=== PATIENT | male | born 1975 ===

== ENCOUNTER 2017-06-29 14:50 | Inpatient (IN) | payer OTHER ==
[2017-06-29] MEDS ORDERED: Vancomycin 1 GM 1 GM/250 ML BAG IV STA (16:04)
[2017-06-29] MEDS ORDERED: Cefepime 1 GM in Sodium Chloride 0.9% 50 ML IVPB STA (16:05)
--- NOTE | 2017-06-29 16:32 | RAD ---
PROCEDURE: Left Foot Radiographs. HISTORY: LEFT FOOT SWELLING, R/O FOREIGN BODY COMPARISON: None available. FINDINGS: BONES: No acute displaced fracture. JOINTS: No dislocation. SOFT TISSUES: Soft tissue swelling. Vascular calcifications. No evidence of radiopaque foreign body. OTHER FINDINGS: None. IMPRESSION: Soft tissue swelling. No evidence radiopaque foreign body.
[2017-06-29 16:51] LABS: BASO # 0.1 K/uL (0.0-0.2); BASO % 0.6 % (0.0-2.0); EOS # 0.4 K/uL (0.0-0.7); HEMOGLOBIN 12.8 g/dL (12.0-18.0); LYMPH # 1.9 K/uL (1.0-4.3); LYMPH % 20.5 % (20.0-40.0); MEAN CELL VOLUME 87.5 fL (80.0-94.0); MEAN CORPUSCULAR HEMOGLOBIN 30.2 pg (27.0-31.0); MEAN CORPUSCULAR HGB CONC 34.5 g/dL (33.0-37.0); MEAN PLATELET VOLUME 8.5 fL (7.2-11.7); MONO # 0.6 K/uL (0.0-0.8); MONO % 6.3 % (0.0-10.0); NEUT # 6.3 K/uL (1.8-7.0); NEUT % 68.6 % (50.0-75.0); RBC 4.24 Mil/uL (4.40-5.90); RED CELL DISTRIBUTION WIDTH 12.2 % (11.5-14.5); WHITE BLOOD COUNT 9.2 K/uL (4.8-10.8)
[2017-06-29] MEDS ORDERED: Cefepime IV 1 gm in Dextrose 1 GM/50 ML BAG IVPB ONE (17:00)
[2017-06-29] MEDS ORDERED: Vancomycin 1 gm/NS 200 ml 1 GM/200 ML BAG IVPB ONE (17:00)
[2017-06-29 17:02] LABS: ALBUMIN 4.2 g/dL (3.5-5.0); ALT/SGPT 23 U/L (21-72); AST/SGOT 18 U/L (17-59); BLOOD UREA NITROGEN 22 mg/dL (9-20); CALCIUM 9.8 mg/dl (8.6-10.4); GFR AFRICAN-AMERICAN > 60; GFR NON-AFRICAN AMERICAN > 60
[2017-06-29] MEDS ORDERED: Tetanus/Diphtheria Toxoids 0.5 ml Syringe IM ONE ×2 (17:33→17:39)
--- NOTE | 2017-06-29 17:36 | C.PDOC ---
History Of Present Illness 41 year old male presents to ED for evaluation of pain and swelling to plantar aspect of left foot for the past 1 week after stepping on a nail at work. Notes that the nail went through the sole of his shoe. He was seen by Dr. Burgos today in the office, and instructed to come to ED; found to have elevated blood sugar level/new onset diabetes. Pt reports he is not up to date with tetanus vaccination. Otherwise, he denies fever/chills, chest pain, shortness of breath, other injuries. Time Seen by Provider: 06/29/17 15:30 Chief Complaint (Nursing): Abnormal Skin Integrity History Per: Patient History/Exam Limitations: no limitations Onset/Duration Of Symptoms: Days (1 week) Current Symptoms Are (Timing): Still Present Location Of Injury: Left: Foot Quality Of Symptoms: Painful Severity: Moderate Additional History Per: Patient Past Medical History Reviewed: Historical Data, Nursing Documentation, Vital Signs Vital Signs: Last Vital Signs Temp 98.0 F 07/05/17 08:15 Pulse 65 07/05/17 08:15 Resp 20 07/05/17 08:15 BP 112/75 07/05/17 08:15 Pulse Ox 95 07/05/17 08:15 - Medical History Other PMH: new onset diabetes Family History: States: No Known Family Hx - Social History Hx Alcohol Use: Yes Hx Substance Use: No - Immunization History Hx Tetanus Toxoid Vaccination: No Hx Influenza Vaccination: No Hx Pneumococcal Vaccination: No Review Of Systems Except As Marked, All Systems Reviewed And Found Negative. Constitutional: Negative for: Fever, Chills Cardiovascular: Negative for: Chest Pain Respiratory: Negative for: Cough, Shortness of Breath Musculoskeletal: Positive for: Foot Pain (left). Negative for: Leg Pain Neurological: Negative for: Weakness, Numbness Physical Exam - Physical Exam Appears: Well, Non-toxic, No Acute Distress Skin: Warm, Dry Head: Normacephalic Eye(s): bilateral: Normal Inspection Oral Mucosa: Moist Cardiovascular: Rhythm Regular Respiratory: Normal Breath Sounds, No Rales, No Rhonchi, No Wheezing Gastrointestinal/Abdominal: Normal Exam, Bowel Sounds, Soft, No Tenderness Extremity: Normal ROM (FROM of left foot), Tenderness (tenderness to plantar aspect of left foot ), No Calf Tenderness, Capillary Refill (< 2 sec all digits ), No Deformity, Other (0.5cm puncture wound at base of left third distal metatarsal joint, (+) surrounding erythema and warm to touch) Pulses: Left Dorsalis Pedis: Normal, Right Dorsalis Pedis: Normal Neurological/Psych: Oriented x3, Normal Sensation ED Course And Treatment - Laboratory Results Result Diagrams: 07/03/17 07:02 07/03/17 07:02 O2 Sat by Pulse Oximetry: 98 Pulse Ox Interpretation: Normal - Other Rad LEFT FOOT XRAY X-Ray: Viewed By Me, Read By Radiologist Interpretation: Accession No. : [id number]. Patient Name / ID : KIYA MCMULLEN / [id number]. Exam Date : 06/29/2017 16:11:35 ( Approved ). Study Comment : Sex / Age : M / 41Y. Creator : Medina Domínugez MD. Dictator : Medina Domínguez MD. Pet Food Deboner : Russian Language Professor : Medina Domínguez MD. Approver2 : Report Date : 06/29/2017 16:30:31. My Comment : . PROCEDURE: Left Foot Radiographs. HISTORY: LEFT FOOT SWELLING, R/O FOREIGN BODY. COMPARISON: None available. FINDINGS: BONES: No acute displaced fracture. JOINTS: No dislocation. SOFT TISSUES: Soft tissue swelling. Vascular calcifications. No evidence of radiopaque foreign body. OTHER FINDINGS: None. IMPRESSION: Soft tissue swelling. No evidence radiopaque foreign body. Progress Note: Blood work, and Xray of left foot ordered and reviewed. Patient given IV Cefepime and IV Vancomycin. Tetanus vaccination ordered. left foot x- ray ordered and reviewed. Pt was given Cefepime IVPB, and Vancomycin IV. Tetanus vaccination was administered. - Physician Consult Information Physician Contacted: Prince Burgos Outcome Of Conversation: Discussed patient with PMD, agrees with admission for foot cellulitis and new onset diabetes. Disposition - Disposition Disposition: HOSPITALIZED Disposition Time: 17:49 Condition: STABLE - Clinical Impression Clinical Impression: New onset type 2 diabetes mellitus, Cellulitis of left foot - Scribe Statement The provider has reviewed the documentation as recorded by the Terellibe Crissy Daly All medical record entries made by the Terellibe were at my direction and personally dictated by me. I have reviewed the chart and agree that the record accurately reflects my personal performance of the history, physical exam, medical decision making, and the department course for this patient. I have also personally directed, reviewed, and agree with the discharge instructions and disposition. Decision To Admit - Pt Status Changed To: Hospital Disposition Of: Inpatient - Admit Certification Admit to Inpatient:: After my assessment, the patient will require hospitalization for at least two midnights. This is because of the severity of symptoms shown, intensity of services needed, and/or the medical risk in this patient being treated as an outpatient. - InPatient: Physician Admission Certification: I certify that this patient requires 2 or more midnights of care for the following reason:: see notes - . Bed Request Type: Regular Admitting Physician: Prince Burgos Patient Diagnosis: New onset type 2 diabetes mellitus, Cellulitis of left foot
[2017-06-29] MEDS: Piperacillin/Tazobact 3.375 GM in Sodium Chloride 100 ML IVPB SCH (19:43)
[2017-06-29] MEDS ORDERED: Piperacillin/Tazobact 3.375 gm 0 ML IVPB ONE (19:44)
[2017-06-29] MEDS: Vancomycin 1 gm/NS 200 ml 1 GM/200 ML BAG IVPB SCH (19:44)
--- NOTE | 2017-06-29 20:24 | CP.PCM.HP ---
History of Present Illness - History of Present Illness History of Present Illness: Chief complaint: Left leg swelling History of present illness: 41-year-old male with no past medical history came to the office initially, with complaining of one-week of left foot swelling. Patient started the swelling after he had a injury while working, there was a nail pierced the skin in the left foot. He took the nail out. He was okay. The days later he started noticing pus and also blood with the pressure. Since then his condition in the left foot started worsening. He started having increasing pain. Increasing redness. Pain, and unable to walk, limping. He also started noticing chills, but no fever noted. He has no other systemic symptoms except chills. He did not have any medical problems in the past, did not seek any medical doctors. Past medical history none. Surgical history: None. Family history: Father with a heart disease, mother also had a history of diabetes and complications. Social history: Sometimes alcohol. Denies smoking. Drinks coffee. Currently working. Current medications none. Review of systems: Denies any headache. No chest pain or shortness of breath. Denies any nausea vomiting. No abdominal pain. Complaining of left leg pain, left foot pain, swelling, redness. Patient also had a significant abrasion in the left the bottom of the foot. On examination: HEENT PERRLA, neck supple No thyromegaly was noted and no cervical adenopathy noted Chest bilateral good air entry, no wheezing or rales noted CVS regular heart sound, no murmur Abdomen soft and no organomegaly Left leg patient has a 1 plus edema. Patient is also having swelling over the dorsum of the left foot, as well as plantar aspect of the foot. There is a redness, and some streaks of marking noted in the plantar aspect of the mid sole. Ablation noted, and the tip of the base of the fourth metatarsal skin lesions noted, wound present. 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 Patient's labs reviewed. Mild elevation of the WBC noted. ESR elevated. X-ray of the left foot nonspecific. Elevated glucose noted. Assessment and recommendation: 41-year-old male came to the office initially. Patient now came to the emergency room with worsening pain and swelling. Most likely patient has acute cellulitis involving the left foot, and associate it with the edema and systemic inflammatory reaction. Patient also had a nail injury. Patient received a tetanus injection. Currently on IV antibiotic, will continue the vancomycin and Zosyn. Glucose comfort. IV fluids. DVT. GI prophylaxis. Further orders in the chart. Will follow the patient Present on Admission - Present on Admission Any Indicators Present on Admission: No History of DVT/PE: No History of Uncontrolled Diabetes: No Urinary Catheter: No Decubitus Ulcer Present: No Past Patient History - Past Social History Smoking Status: Never Smoked - PSYCHIATRIC Hx Substance Use: No - SURGICAL HISTORY Hx Surgeries: No - ANESTHESIA Hx Anesthesia: No Meds Allergies/Adverse Reactions: Allergies Allergy/AdvReac Type Severity Reaction Status Date / Time No Known Allergies Allergy Unverified 06/29/17 15:26 Results - Vital Signs Recent Vital Signs: Last Vital Signs Temp 98.7 F 06/29/17 20:06 Pulse 73 06/29/17 20:06 Resp 18 06/29/17 20:06 BP 107/68 06/29/17 20:06 Pulse Ox 98 06/29/17 20:06 - Labs Result Diagrams: 06/29/17 16:42 06/29/17 16:42 Labs: Laboratory Results - last 24 hr 06/29/17 06/29/17 06/29/17 15:29 16:42 16:42 WBC 9.2 RBC 4.24 L Hgb 12.8 Hct 37.1 MCV 87.5 MCH 30.2 MCHC 34.5 RDW 12.2 Plt Count 361 MPV 8.5 Neut % (Auto) 68.6 Lymph % (Auto) 20.5 [place] % (Auto) 6.3 Eos % (Auto) 4.0 Baso % (Auto) 0.6 Neut # (Auto) 6.3 Lymph # (Auto) 1.9 [place] # (Auto) 0.6 Eos # (Auto) 0.4 Baso # (Auto) 0.1 ESR 106 H Sodium 134 Potassium 4.4 Chloride 93 L Carbon Dioxide 29 Anion Gap 17 BUN 22 H Creatinine 0.8 Est GFR ( Amer) > 60 Est GFR (Non-Af Amer) > 60 POC Glucose (mg/dL) 299 H Random Glucose 292 H Calcium 9.8 Total Bilirubin 0.5 AST 18 ALT 23 Alkaline Phosphatase 100 Total Protein 8.3 Albumin 4.2 Globulin 4.1 H Albumin/Globulin Ratio 1.0 Serum Ketones Negative
[2017-06-29] MEDS ORDERED: Sodium Chloride 0.9% 1,000 ML ONE (21:13)
[2017-06-29] MEDS: Sodium Chloride 0.9% 1,000 ML IV SCH (21:14)
[2017-06-29 21:58] LABS: BASO # 0.1 K/uL (0.0-0.2); BASO % 0.7 % (0.0-2.0); EOS # 0.4 K/uL (0.0-0.7); EOS % 5.1 % (0.0-4.0); HEMOGLOBIN 12.4 g/dL (12.0-18.0); LYMPH # 2.3 K/uL (1.0-4.3); LYMPH % 27.2 % (20.0-40.0); MEAN CELL VOLUME 87.2 fL (80.0-94.0); MEAN CORPUSCULAR HEMOGLOBIN 30.4 pg (27.0-31.0); MEAN CORPUSCULAR HGB CONC 34.9 g/dL (33.0-37.0); MEAN PLATELET VOLUME 8.9 fL (7.2-11.7); MONO # 0.6 K/uL (0.0-0.8); MONO % 6.6 % (0.0-10.0); NEUT # 5.2 K/uL (1.8-7.0); NEUT % 60.4 % (50.0-75.0); RBC 4.08 Mil/uL (4.40-5.90); RED CELL DISTRIBUTION WIDTH 12.1 % (11.5-14.5); WHITE BLOOD COUNT 8.5 K/uL (4.8-10.8)
[2017-06-29 22:08] LABS: ALBUMIN 4.1 g/dL (3.5-5.0); ALT/SGPT 24 U/L (21-72); AST/SGOT 19 U/L (17-59); BLOOD UREA NITROGEN 20 mg/dL (9-20); CALCIUM 9.7 mg/dl (8.6-10.4); GFR AFRICAN-AMERICAN > 60; GFR NON-AFRICAN AMERICAN > 60
[2017-06-29] MEDS: (Novolin R) Insulin Human Regular 100 units/ml vial SC SCH (22:28)
[2017-06-29] MEDS ORDERED: (Novolin R) Insulin Human Regular 100 units/ml vial ONE ×2 (22:28→22:32)
[2017-06-30] MEDS: Piperacillin/Tazobact 3.375 GM in Sodium Chloride 100 ML IVPB SCH ×4 (01:13→19:45)
[2017-06-30] MEDS: (Novolin R) Insulin Human Regular 100 units/ml vial SC SCH ×4 (08:23→21:40)
[2017-06-30] MEDS: Enoxaparin 40 mg Syringe SC SCH (10:53)
[2017-06-30] MEDS: Vancomycin 1 gm/NS 200 ml 1 GM/200 ML BAG IVPB SCH ×2 (10:53→21:42)
--- NOTE | 2017-06-30 11:35 | VASCLAB ---
PROCEDURE: Left Lower Extremity Venous Duplex Exam. HISTORY: Cellulitis PRIORS: None. TECHNIQUE: Left common femoral, femoral, popliteal and posterior tibial, peroneal and great saphenous veins were evaluated. Flow was assessed with color Doppler, compressibility, assessment of phasic flow and augmentation response. Report prepared by DANUTA Rodriguez, RVT FINDINGS: LEFT: 1. Common Femoral Vein: 1.1. Compressibility - Fully compressible: Thrombus - None : Flow - Phasic: Augmentation -Normal: Reflux - None. 2. Femoral Vein: 2.1. Compressibility - Fully compressible: Thrombus - None: Flow - Phasic: Augmentation -Normal: Reflux - None. 3. Popliteal Vein: 3.1. Compressibility - Fully compressible: Thrombus - None: Flow - Phasic: Augmentation -Normal: Reflux - None. 4. Posterior Tibial Vein: 4.1. Compressibility - Fully compressible: Thrombus - None: Flow - Phasic: Augmentation -Normal: Reflux - None. 5. Peroneal Vein: 5.1. Compressibility - Fully compressible: Thrombus - None: Flow - Phasic: Augmentation -Normal: Reflux - None. 6. Great Saphenous Vein: 6.1. Compressibility - Fully compressible: Thrombus - None: Flow - Phasic: Augmentation - Normal: Reflux - None. OTHER FINDINGS: IMPRESSION: No evidence of deep or superficial vein thrombosis of the left lower extremity with excellent venous flow. Normal valve function noted of the left side. Normal venous flow noted in the right common femoral vein.
[2017-06-30] MEDS: Sodium Chloride 0.9% 1,000 ML IV SCH (15:01)
--- NOTE | 2017-06-30 23:10 | CP.PCM.PN ---
Subjective - Date & Time of Evaluation Date of Evaluation: 06/30/17 Time of Evaluation: 23:09 - Subjective Subjective: Patient is feeling better. The leg pain is less. The redness is down. Denies any chest pain. No shortness of breath. Vital signs reviewed No neck vein distention noted Chest good air entry bilaterally, no wheezing or rales noted CVS regular heart sound, no murmur noted Abdomen soft, nontender. 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 Elevated hemoglobin A1c noted. Sugar is also elevated. MRI of the foot is currently pending. DVT study negative Assessment and recommendation: 41-year-old male admitted with new onset diabetes. Also having severe cellulitis of the left foot secondary to foreign body. Awaiting MRI. If there is any abscess, will get IND by turn machine operator. Infectious disease evaluation may be needed will follow the patient Objective - Vital Signs/Intake and Output Vital Signs (last 24 hours): Temp Pulse Resp BP Pulse Ox 98 F 70 20 125/76 97 06/30/17 15:50 06/30/17 15:50 06/30/17 15:50 06/30/17 15:50 06/30/17 15:50 Intake and Output: 06/30/17 07/01/17 18:59 06:59 Intake Total 1200 Balance 1200 - Medications Medications: Current Medications Enoxaparin Sodium (Lovenox) 40 mg SC DAILY [facility] Last Admin: 06/30/17 10:53 Dose: 40 mg Piperacillin Sod/Tazobactam (Sod 3.375 gm/ Sodium Chloride) 100 mls @ 200 mls/ hr IVPB Q6H [facility] Last Admin: 06/30/17 19:45 Dose: 200 mls/hr Sodium Chloride (Sodium Chloride 0.9%) 1,000 mls @ 100 mls/hr IV .Q10H [facility] Last Admin: 06/30/17 15:01 Dose: 100 mls/hr Vancomycin/Sodium Chloride (Vancomycin 1 Gm/Ns 200 Ml) 1 gm in 200 mls @ 166.6 mls/hr IVPB Q12H [facility] Stop: 07/05/17 22:31 Last Admin: 06/30/17 21:42 Dose: 166.6 mls/hr Insulin Human Regular (Novolin R) 0 unit SC ACHS [facility] PRN Reason: Protocol Last Admin: 06/30/17 21:40 Dose: Not Given Pantoprazole Sodium (Protonix Inj) 40 mg IVP DAILY [facility] Last Admin: 06/30/17 10:53 Dose: 40 mg Pneumococcal Polyvalent Vaccine (Pneumovax 23 Vaccine) 0.5 ml IM .ONCE ONE Stop: 07/02/17 14:01 - Labs Labs: 06/29/17 21:51 06/29/17 21:51
[2017-06-30] MEDS: (Lantus) Insulin Glargine, Recombinant SC SCH (23:35)
[2017-07-01] MEDS: Piperacillin/Tazobact 3.375 GM in Sodium Chloride 100 ML IVPB SCH ×4 (01:31→20:30)
[2017-07-01] MEDS: Sodium Chloride 0.9% 1,000 ML IV SCH ×4 (02:30→22:33)
[2017-07-01 07:33] LABS: ALBUMIN 3.5 g/dL (3.5-5.0); ALT/SGPT 22 U/L (21-72); AST/SGOT 18 U/L (17-59); BASO # 0.1 K/uL (0.0-0.2); BASO % 0.9 % (0.0-2.0); BLOOD UREA NITROGEN 13 mg/dL (9-20); CALCIUM 8.8 mg/dl (8.6-10.4); EOS # 0.4 K/uL (0.0-0.7); EOS % 5.1 % (0.0-4.0); GFR AFRICAN-AMERICAN > 60; GFR NON-AFRICAN AMERICAN > 60; HEMOGLOBIN 11.5 g/dL (12.0-18.0); LYMPH % 28.9 % (20.0-40.0); MEAN CELL VOLUME 86.7 fL (80.0-94.0); MEAN CORPUSCULAR HEMOGLOBIN 30.2 pg (27.0-31.0); MEAN CORPUSCULAR HGB CONC 34.8 g/dL (33.0-37.0); MEAN PLATELET VOLUME 8.3 fL (7.2-11.7); MONO # 0.6 K/uL (0.0-0.8); NEUT % 57.1 % (50.0-75.0); RBC 3.82 Mil/uL (4.40-5.90); RED CELL DISTRIBUTION WIDTH 11.9 % (11.5-14.5); WHITE BLOOD COUNT 7.1 K/uL (4.8-10.8)
--- NOTE | 2017-07-01 08:30 | CP.PCM.PN ---
Subjective - Date & Time of Evaluation Date of Evaluation: 07/01/17 Time of Evaluation: 08:29 - Subjective Subjective: Patient feeling okay. The blood sugar is slightly better. Denies any chest pain. Receiving IV antibiotics. Will discontinue the IV fluid today. Pending MRI report. Infectious disease, podiatry evaluation as needed after the MRI. Continue the IV antibiotic for now. Patient is a 41-year-old male with new onset diabetes. Admitted with the following body, and the left leg cellulitis. Cultures are so far negative, repeat blood analysis nonspecific Objective - Vital Signs/Intake and Output Vital Signs (last 24 hours): Temp Pulse Resp BP Pulse Ox 98 F 68 20 107/68 98 06/30/17 23:45 06/30/17 23:45 06/30/17 23:45 06/30/17 23:45 06/30/17 23:45 Intake and Output: 07/01/17 07/01/17 06:59 18:59 Intake Total 1000 Balance 1000 - Medications Medications: Current Medications Enoxaparin Sodium (Lovenox) 40 mg SC DAILY [facility] Last Admin: 06/30/17 10:53 Dose: 40 mg Glipizide (Glucotrol) 2.5 mg PO ACB [facility] Piperacillin Sod/Tazobactam (Sod 3.375 gm/ Sodium Chloride) 100 mls @ 200 mls/ hr IVPB Q6H [facility] Last Admin: 07/01/17 06:30 Dose: 200 mls/hr Sodium Chloride (Sodium Chloride 0.9%) 1,000 mls @ 100 mls/hr IV .Q10H [facility] Last Admin: 07/01/17 05:59 Dose: 100 mls/hr Vancomycin/Sodium Chloride (Vancomycin 1 Gm/Ns 200 Ml) 1 gm in 200 mls @ 166.6 mls/hr IVPB Q12H [facility] Stop: 07/05/17 22:31 Last Admin: 06/30/17 21:42 Dose: 166.6 mls/hr Insulin Glargine (Lantus) 10 unit SC HS [facility] Last Admin: 06/30/17 23:35 Dose: 10 units Insulin Human Regular (Novolin R) 0 unit SC ACHS [facility] PRN Reason: Protocol Last Admin: 06/30/17 21:40 Dose: Not Given Pantoprazole Sodium (Protonix Inj) 40 mg IVP DAILY [facility] Last Admin: 06/30/17 10:53 Dose: 40 mg Pneumococcal Polyvalent Vaccine (Pneumovax 23 Vaccine) 0.5 ml IM .ONCE ONE Stop: 07/02/17 14:01 - Labs Labs: 07/01/17 07:07 07/01/17 07:07
[2017-07-01] MEDS: GlipiZIDE 2.5 mg Tab PO SCH (09:05)
[2017-07-01] MEDS: Enoxaparin 40 mg Syringe SC SCH (09:05)
[2017-07-01] MEDS: (Novolin R) Insulin Human Regular 100 units/ml vial SC SCH ×4 (09:05→22:31)
[2017-07-01] MEDS: Vancomycin 1 gm/NS 200 ml 1 GM/200 ML BAG IVPB SCH ×2 (09:44→22:32)
--- NOTE | 2017-07-01 11:02 | MRI ---
MRI left foot History: Abscess. Cellulitis. Comparison: Plain x-ray dated 06/29/2017 Technique: Multi-echo multiplanar sequences were performed through the left foot without the use of intravenous contrast. Findings: Prominent plantar sided abscess with decreased T1 and increased STIR signal measuring 2.1 x 1.2 x 1.0 centimeters seen at the level of the 3rd and 4th metatarsal heads. Small fistula tract connecting to the plantar side of the foot noted. There is adjacent thickening and edema of the 4th flexor tendon sheath suggestive for a tenosynovitis. In addition, there is some adjacent reactive edema seen within the 3rd and 4th metatarsal heads as well as the base of the 4th proximal phalanx with increased STIR signal. No gross corresponding T1 signal abnormality at this level. These changes may represent a developing and or early acute osteomyelitis at these levels. Clinical correlation. Prominent reticulation and edema seen within the circumferential subcutaneous soft tissues suggestive for an underlying cellulitis. Prominent signal abnormality seen at the anterior and posterior aspect of the navicular bone at the articular surfaces demonstrating decreased T1 signal and increased STIR signal suggestive for prominent osteochondral change versus less likely osteonecrosis versus less likely the sequelae of posttraumatic, inflammatory, and or infectious changes. Clinical correlation. Signal changes seen at the medial sesamoid bone suggestive for some osteochondral change. Small amount of fluid noted within the extensor tendons of the 2nd through 5th digits. Edema noted within the muscle belly of the flexor digitorum longus muscle and partially surrounding the flexor hallucis longus tendon. Impression: 1. Prominent plantar sided abscess with decreased T1 and increased STIR signal measuring 2.1 x 1.2 x 1.0 centimeters seen at the level of the 3rd and 4th metatarsal heads. Small fistula tract connecting to the plantar side of the foot noted. There is adjacent thickening and edema of the 4th flexor tendon sheath suggestive for a tenosynovitis. In addition, there is some adjacent reactive edema seen within the 3rd and 4th metatarsal heads as well as the base of the 4th proximal phalanx with increased STIR signal. No gross corresponding T1 signal abnormality at this level. These changes may represent a developing and or early acute osteomyelitis at these levels. Clinical correlation. 2. Prominent reticulation and edema seen within the circumferential subcutaneous soft tissues suggestive for an underlying cellulitis. 3. Prominent signal abnormality seen at the anterior and posterior aspect of the navicular bone at the articular surfaces demonstrating decreased T1 signal and increased STIR signal suggestive for prominent osteochondral change versus less likely osteonecrosis versus less likely the sequelae of posttraumatic, inflammatory, and or infectious changes. Clinical correlation. 4. Signal changes seen at the medial sesamoid bone suggestive for some osteochondral change. 5. Small amount of fluid noted within the extensor tendons of the 2nd through 5th digits. 6. Edema noted within the muscle belly of the flexor digitorum longus muscle and partially surrounding the flexor hallucis longus tendon.
--- NOTE | 2017-07-01 15:39 | CP.PCM.CON ---
History of Present Illness - History of Present Illness History of Present Illness: Podiatry Consult Note- Dr. Holm 41 year old male seen at bedside concerning left foot redness and swelling. Pt states over one-week agoe at work he stepped on a nail, which pierced his shoe. He took the nail out. Over next 3 days he noticed redness and swelling to the foot, on the 3rd day he noted pus and also blood with walking. As pain increased this concerned him, prompting him to stillaguamish medical attention. Pt seen in ED where tetanus prophylaxis protocol was followed. Pt reports that at this time pain, redness, and swelling have decreased since admission. Pt admits to feeling of chills prior to admission, but denies recent f/cp/sob/n/v/dizzyness, tight jaw, or difficulty chewing, Past Patient History - Past Social History Smoking Status: Never Smoked - CARDIAC Hx Cardiac Disorders: No - PULMONARY Hx Respiratory Disorders: No - NEUROLOGICAL Hx Neurological Disorder: No - HEENT Hx HEENT Problems: No - RENAL Hx Chronic Kidney Disease: No - ENDOCRINE/METABOLIC Hx Endocrine Disorders: No - HEMATOLOGICAL/ONCOLOGICAL Hx Blood Disorders: No - INTEGUMENTARY Hx Dermatological Problems: No - MUSCULOSKELETAL/RHEUMATOLOGICAL Hx Musculoskeletal Disorders: No Hx Falls: No - GASTROINTESTINAL Hx Gastrointestinal Disorders: No - GENITOURINARY/GYNECOLOGICAL Hx Genitourinary Disorders: No - PSYCHIATRIC Hx Psychophysiologic Disorder: No Hx Substance Use: No - SURGICAL HISTORY Hx Surgeries: No - ANESTHESIA Hx Anesthesia: No Meds Allergies/Adverse Reactions: Allergies Allergy/AdvReac Type Severity Reaction Status Date / Time No Known Allergies Allergy Unverified 06/29/17 15:26 - Medications Medications: Current Medications Enoxaparin Sodium (Lovenox) 40 mg SC DAILY [facility] Last Admin: 07/01/17 09:05 Dose: 40 mg Glipizide (Glucotrol) 2.5 mg PO ACB [facility] Last Admin: 07/01/17 09:05 Dose: 2.5 mg Piperacillin Sod/Tazobactam (Sod 3.375 gm/ Sodium Chloride) 100 mls @ 200 mls/ hr IVPB Q6H [facility] Last Admin: 07/01/17 12:36 Dose: 200 mls/hr Sodium Chloride (Sodium Chloride 0.9%) 1,000 mls @ 100 mls/hr IV .Q10H [facility] Last Admin: 07/01/17 12:59 Dose: Not Given Vancomycin/Sodium Chloride (Vancomycin 1 Gm/Ns 200 Ml) 1 gm in 200 mls @ 166.6 mls/hr IVPB Q12H [facility] Stop: 07/05/17 22:31 Last Admin: 07/01/17 09:44 Dose: 166.6 mls/hr Insulin Glargine (Lantus) 10 unit SC HS [facility] Last Admin: 06/30/17 23:35 Dose: 10 units Insulin Human Regular (Novolin R) 0 unit SC ACHS [facility] PRN Reason: Protocol Last Admin: 07/01/17 12:36 Dose: 3 unit Pantoprazole Sodium (Protonix Inj) 40 mg IVP DAILY [facility] Last Admin: 07/01/17 09:05 Dose: 40 mg Pneumococcal Polyvalent Vaccine (Pneumovax 23 Vaccine) 0.5 ml IM .ONCE ONE Stop: 07/02/17 14:01 Physical Exam - Constitutional Appears: Well, Non-toxic, No Acute Distress - Extremities Exam Additional comments: Left lower extremity focused. VASC: DP and PT pulses fully palpable graded 3/4. CFT to all digits is prompt, < 3 seconds. Mild non-pitting edema noted to midfoot region. Temperature runs warm to warm proximal to distal. Pedal hair growth noted to level of digits. DERM: Non streaking erythema noted to plantar aspect of foot extending from hyperkeratoic lesion, noted as portal of entry into plantar chau, non streaking erythema, mild regional localized callor. No active drainage. Area of erythema mildly fluctuant. Nails are normotrophic. Skin is supple. NERUO: Protective sensation grossly intact extending to level of digits. Sharp dull sensation intact. MUSK: No gross deformities noted. No tenderness to palpation noted. Lower leg and pedal muscle strength graded 5/5 in all 4 major muscle groups. - Neurological Exam Neurological exam: Alert, Oriented x3 - Psychiatric Exam Psychiatric exam: Normal Affect, Normal Mood Results - Vital Signs Recent Vital Signs: Last Vital Signs Temp 97.7 F 07/01/17 09:30 Pulse 67 07/01/17 09:30 Resp 20 07/01/17 09:30 BP 109/67 07/01/17 09:30 Pulse Ox 96 07/01/17 09:30 - Labs Result Diagrams: 07/01/17 07:07 07/01/17 07:07 Labs: Laboratory Results - last 24 hr 06/30/17 06/30/17 07/01/17 17:11 21:38 07:02 WBC RBC Hgb Hct MCV MCH MCHC RDW Plt Count MPV Neut % (Auto) Lymph % (Auto) [place] % (Auto) Eos % (Auto) Baso % (Auto) Neut # (Auto) Lymph # (Auto) [place] # (Auto) Eos # (Auto) Baso # (Auto) Sodium Potassium Chloride Carbon Dioxide Anion Gap BUN Creatinine Est GFR ( Amer) Est GFR (Non-Af Amer) POC Glucose (mg/dL) 267 H 278 H 221 H Random Glucose Calcium Total Bilirubin AST ALT Alkaline Phosphatase Total Protein Albumin Globulin Albumin/Globulin Ratio 07/01/17 07/01/17 07/01/17 07:07 07:07 12:09 WBC 7.1 RBC 3.82 L Hgb 11.5 L Hct 33.1 L MCV 86.7 MCH 30.2 MCHC 34.8 RDW 11.9 Plt Count 308 MPV 8.3 Neut % (Auto) 57.1 Lymph % (Auto) 28.9 Stearns % (Auto) 8.0 Eos % (Auto) 5.1 H Baso % (Auto) 0.9 Neut # (Auto) 4.0 Lymph # (Auto) 2.0 Stearns # (Auto) 0.6 Eos # (Auto) 0.4 Baso # (Auto) 0.1 Sodium 132 Potassium 3.9 Chloride 96 L Carbon Dioxide 29 Anion Gap 10 BUN 13 Creatinine 0.8 Est GFR ( Amer) > 60 Est GFR (Non-Af Amer) > 60 POC Glucose (mg/dL) 232 H Random Glucose 221 H Calcium 8.8 Total Bilirubin 0.3 AST 18 ALT 22 Alkaline Phosphatase 76 Total Protein 6.9 Albumin 3.5 Globulin 3.5 Albumin/Globulin Ratio 1.0 Assessment & Plan - Assessment and Plan (Free Text) Assessment: 41 year old male with 1) left foot cellulitis secondary to foreign body 2) 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 Plan: Pt seen and evaluated. Discussed finding and plan with attending, Dr. Holm, who endorsed. Chart, labs, and vitals reviewed. Afebrile, absent leukocytosis. CSS=[id number], elevated X-rays reviewed- negative for soft tissue emphysema. MRI results: plantar abscess and 4th metatarsal head OM> Infectious disease consult pending, recommendations appreciated. Continue the IV antibiotic. Wound cx results- Coagulase negative staphylococcus species. Surgical intervention indicated. Pt to OR for left foot I&D of abscess and 4th metatarsal head resection. -Discussed etiology of injury and post foreign body complication with patient. Discussed risk, benefits, complications, and alternatives to surgical procedure. Discussed post-operative and rehabilitation course with patient. Pt verbalizes understanding and agrees to surgical intervention. - Pt placed NPO after breakfast tomorrow morning at 8am - Anticoagulant Lovenox 40mg SC held. Pt scheduled for procedure tomorrow Wednesday07/02/17 @ 3:30pm Podiatry will continue to follow patient while inhouse. - Date & Time Date: 07/01/17 Time: 14:00
--- NOTE | 2017-07-01 16:23 | CP.PCM.CON ---
History of Present Illness - History of Present Illness History of Present Illness: dictated Past Patient History - Past Social History Smoking Status: Never Smoked - CARDIAC Hx Cardiac Disorders: No - PULMONARY Hx Respiratory Disorders: No - NEUROLOGICAL Hx Neurological Disorder: No - HEENT Hx HEENT Problems: No - RENAL Hx Chronic Kidney Disease: No - ENDOCRINE/METABOLIC Hx Endocrine Disorders: No - HEMATOLOGICAL/ONCOLOGICAL Hx Blood Disorders: No - INTEGUMENTARY Hx Dermatological Problems: No - MUSCULOSKELETAL/RHEUMATOLOGICAL Hx Musculoskeletal Disorders: No Hx Falls: No - GASTROINTESTINAL Hx Gastrointestinal Disorders: No - GENITOURINARY/GYNECOLOGICAL Hx Genitourinary Disorders: No - PSYCHIATRIC Hx Psychophysiologic Disorder: No Hx Substance Use: No - SURGICAL HISTORY Hx Surgeries: No - ANESTHESIA Hx Anesthesia: No Meds Allergies/Adverse Reactions: Allergies Allergy/AdvReac Type Severity Reaction Status Date / Time No Known Allergies Allergy Unverified 06/29/17 15:26 - Medications Medications: Current Medications Enoxaparin Sodium (Lovenox) 40 mg SC DAILY [facility] Last Admin: 07/01/17 09:05 Dose: 40 mg Glipizide (Glucotrol) 2.5 mg PO ACB [facility] Last Admin: 07/01/17 09:05 Dose: 2.5 mg Piperacillin Sod/Tazobactam (Sod 3.375 gm/ Sodium Chloride) 100 mls @ 200 mls/ hr IVPB Q6H [facility] Last Admin: 07/01/17 12:36 Dose: 200 mls/hr Sodium Chloride (Sodium Chloride 0.9%) 1,000 mls @ 100 mls/hr IV .Q10H [facility] Last Admin: 07/01/17 12:59 Dose: Not Given Vancomycin/Sodium Chloride (Vancomycin 1 Gm/Ns 200 Ml) 1 gm in 200 mls @ 166.6 mls/hr IVPB Q12H [facility] Stop: 07/05/17 22:31 Last Admin: 07/01/17 09:44 Dose: 166.6 mls/hr Insulin Glargine (Lantus) 10 unit SC HS [facility] Last Admin: 06/30/17 23:35 Dose: 10 units Insulin Human Regular (Novolin R) 0 unit SC ACHS [facility] PRN Reason: Protocol Last Admin: 07/01/17 12:36 Dose: 3 unit Pantoprazole Sodium (Protonix Inj) 40 mg IVP DAILY [facility] Last Admin: 07/01/17 09:05 Dose: 40 mg Pneumococcal Polyvalent Vaccine (Pneumovax 23 Vaccine) 0.5 ml IM .ONCE ONE Stop: 07/02/17 14:01 Results - Vital Signs Recent Vital Signs: Last Vital Signs Temp 97.7 F 07/01/17 09:30 Pulse 67 07/01/17 09:30 Resp 20 07/01/17 09:30 BP 109/67 07/01/17 09:30 Pulse Ox 96 07/01/17 09:30 - Labs Result Diagrams: 07/01/17 07:07 07/01/17 07:07 Labs: Laboratory Results - last 24 hr 06/30/17 06/30/17 07/01/17 17:11 21:38 07:02 WBC RBC Hgb Hct MCV MCH MCHC RDW Plt Count MPV Neut % (Auto) Lymph % (Auto) [place] % (Auto) Eos % (Auto) Baso % (Auto) Neut # (Auto) Lymph # (Auto) Frederick # (Auto) Eos # (Auto) Baso # (Auto) Sodium Potassium Chloride Carbon Dioxide Anion Gap BUN Creatinine Est GFR ( Amer) Est GFR (Non-Af Amer) POC Glucose (mg/dL) 267 H 278 H 221 H Random Glucose Calcium Total Bilirubin AST ALT Alkaline Phosphatase Total Protein Albumin Globulin Albumin/Globulin Ratio 07/01/17 07/01/17 07/01/17 07:07 07:07 12:09 WBC 7.1 RBC 3.82 L Hgb 11.5 L Hct 33.1 L MCV 86.7 MCH 30.2 MCHC 34.8 RDW 11.9 Plt Count 308 MPV 8.3 Neut % (Auto) 57.1 Lymph % (Auto) 28.9 Frederick % (Auto) 8.0 Eos % (Auto) 5.1 H Baso % (Auto) 0.9 Neut # (Auto) 4.0 Lymph # (Auto) 2.0 Frederick # (Auto) 0.6 Eos # (Auto) 0.4 Baso # (Auto) 0.1 Sodium 132 Potassium 3.9 Chloride 96 L Carbon Dioxide 29 Anion Gap 10 BUN 13 Creatinine 0.8 Est GFR ( Amer) > 60 Est GFR (Non-Af Amer) > 60 POC Glucose (mg/dL) 232 H Random Glucose 221 H Calcium 8.8 Total Bilirubin 0.3 AST 18 ALT 22 Alkaline Phosphatase 76 Total Protein 6.9 Albumin 3.5 Globulin 3.5 Albumin/Globulin Ratio 1.0
[2017-07-01] MEDS: (Lantus) Insulin Glargine, Recombinant SC SCH (22:51)
[2017-07-02] MEDS: Piperacillin/Tazobact 3.375 GM in Sodium Chloride 100 ML IVPB SCH ×3 (01:04→13:31)
[2017-07-02] MEDS: GlipiZIDE 2.5 mg Tab PO SCH (07:24)
[2017-07-02 07:30] LABS: BASO % 0.7 % (0.0-2.0); EOS # 0.3 K/uL (0.0-0.7); EOS % 4.7 % (0.0-4.0); HEMOGLOBIN 11.5 g/dL (12.0-18.0); LYMPH # 2.1 K/uL (1.0-4.3); LYMPH % 27.9 % (20.0-40.0); MEAN CELL VOLUME 86.2 fL (80.0-94.0); MEAN CORPUSCULAR HEMOGLOBIN 30.5 pg (27.0-31.0); MEAN CORPUSCULAR HGB CONC 35.3 g/dL (33.0-37.0); MEAN PLATELET VOLUME 8.1 fL (7.2-11.7); MONO # 0.6 K/uL (0.0-0.8); MONO % 7.5 % (0.0-10.0); NEUT # 4.4 K/uL (1.8-7.0); NEUT % 59.2 % (50.0-75.0); RBC 3.79 Mil/uL (4.40-5.90); RED CELL DISTRIBUTION WIDTH 11.7 % (11.5-14.5); WHITE BLOOD COUNT 7.4 K/uL (4.8-10.8)
--- NOTE | 2017-07-02 07:58 | CON ---
DATE: HISTORY OF PRESENT ILLNESS: The patient is a 41-year-old male. 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 It pierced the skin in the left foot, and he took out the nail, he was okay, but he noticed pus and blood on pressure and is being worsening since that time. Hence, he is admitted here. I am asked to see him. He has increased redness. He was limping, unable to walk, and he denied any fevers, did have some chills. He is not diabetic, but I today only found out, he is diabetic. PAST MEDICAL HISTORY: Not known. SURGICAL HISTORY: Negative. FAMILY HISTORY: Father of heart disease and mother had history of diabetes and its complications. SOCIAL HISTORY: He sometimes drinks alcohol. No smoking and denies any drugs. MEDICATIONS: He takes no medications. REVIEW OF SYSTEMS: He denied any headaches. No ear, nose, or throat problems. No chest pain, no shortness of breath. No abdominal pain. No nausea, no vomiting. He did complain of left foot pain and unable to walk and has been limping because of the ulcer on the foot. PHYSICAL EXAMINATION: VITAL SIGNS: T-max is 97.8, pulse 67, blood pressure 135/86, respirations 20. HEENT: Head is atraumatic, normocephalic. Pupils are reacting to light. He only speaks Telugu. Tongue is unremarkable. NECK: Supple. JVP is flat. LUNGS: Clear. No crackles or rales present. HEART: S1 and S2 is regular. No murmurs appreciated. ABDOMEN: Soft, nontender. No guarding. No rigidity present. EXTREMITIES: Left foot has induration on the sole area, and there is a johnna with needle. I mean to say the nail may have gone in, but it was removed. LABS: Labs are noted. Labs show white count is 7.1, hemoglobin 11.5, hematocrit 33.1, platelet count is 308, BUN is 13, creatinine 0.8. LFTs are unremarkable, and the microwise wound culture came out coagulase negative Staph which is probably a skin contaminant. Blood cultures x2 are negative. The patient is supposed to have MRI and a Duplex and foot x-ray. Foot x-ray showed soft tissue swelling, vascular calcification. No evidence of radioopaque foreign body, and he also had Duplex scan of the lower extremity artery, and the MRI shows prominent plantar-sided abscess with increased ____ seen on the level of third and fourth metatarsal heads, small fistula tract connecting to the plantar side of the foot. There is adjacent thickening and edema of the fourth floor or tendon sheath suggesting tenosynovitis. There is some adjacent reactive edema seen within the third and the fourth metatarsal head as well as the base of the fourth proximal phalanx with increased STR signal. No gross corresponding abnormality at this level. There is prominent reticulation of the edema seen within the circumferential subcutaneous soft tissue suggesting of underlying cellulitis. He has an abscess status post nail. I hope he is up to date with his tetanus shot as that can be a problem, and he has an abscess that needs to be drained and we will follow, and leave him on vancomycin and Zosyn at this time. His labs, we will check ESR tomorrow and his sugars need to be monitored. Nohemy Taylor MD
[2017-07-02] MEDS: (Novolin R) Insulin Human Regular 100 units/ml vial SC SCH ×4 (08:39→21:31)
--- NOTE | 2017-07-02 08:41 | RAD ---
HISTORY: preop COMPARISON: None available. TECHNIQUE: Chest, one view. FINDINGS: Examination limited by habitus and hypoinflation. LUNGS: No focal consolidation. Please note that chest x-ray has limited sensitivity for the detection of pulmonary masses. PLEURA: No significant pleural effusion identified. No definite pneumothorax . CARDIOVASCULAR: The cardiomediastinal silhouette appears within normal limits of size. OSSEOUS STRUCTURES: No acute osseous abnormality identified. VISUALIZED UPPER ABDOMEN: Unremarkable. OTHER FINDINGS: None. IMPRESSION: Hypoinflation. No focal consolidation identified.
[2017-07-02] MEDS: Vancomycin 1 gm/NS 200 ml 1 GM/200 ML BAG IVPB SCH ×2 (10:44→21:33)
[2017-07-02 11:36] LABS: INR 1.1; PROTHROMBIN TIME 12.3 SECONDS (9.7-12.2)
--- NOTE | 2017-07-02 13:11 | CARD ---
APPROVED REPORT EKG Measurement Heart [id number] <Conclusion> Normal sinus rhythm Normal ECG
[2017-07-02] MEDS ORDERED: Pneumococcal 23-Valent Vaccine IM ONE (14:00)
[2017-07-02] MEDS ORDERED: Bupivacaine HCl 0.5% PF (10 ml) Inj ONE (16:11)
[2017-07-02] MEDS ORDERED: Lidocaine 2% Inj (20ml) ONE (16:11)
[2017-07-02] MEDS ORDERED: Lactated Ringer's 1,000 ML IV ONE (16:13)
[2017-07-02] MEDS ORDERED: Propofol 10 mg/ml Inj (20 ML) ONE (16:18)
[2017-07-02] MEDS: Piperacill/Tazo 3.375gm in Dex 3.375 GM/50 ML BAG IVPB SCH ×2 (16:30→21:32)
[2017-07-02] MEDS ORDERED: ePHEDrine 50 mg/ml Inj ONE (16:42)
[2017-07-02] MEDS ORDERED: Lidocaine Hydrochloride 5 ML INJ ONE (16:42)
[2017-07-02] MEDS ORDERED: Phenylephrine 10 mg/ml Inj ONE (16:42)
[2017-07-02] MEDS ORDERED: HYDROmorphone 0.5 mg/0.5 ml ISec IVP PRN (17:13)
--- NOTE | 2017-07-02 17:21 | PCM.SURG1 ---
Surgeon's Initial Post Op Note - Surgeon's Notes Surgeon: Dr. Huy Holm, DPM Nursing Teacher: Marimar Self PGY2 Type of Anesthesia: General LMA Anesthesia Administered By: Dr. Carey Pre-Operative Diagnosis: Left foot plantar abscess Operative Findings: see dictation Post-Operative Diagnosis: Left foot plantar space abscess. Operation Performed: Left foot incision and drainage Specimen/Specimens Removed: Left foot wound culture Estimated Blood Loss: EBL {In ML}: 15 Blood Products Given: N/A Drains Used: No Drains Post-Op Condition: Good Date of Surgery/Procedure: 07/02/17 Time of Surgery/Procedure: 17:21
[2017-07-02] MEDS ORDERED: Oxycodone/Acetaminophen 5/325 mg Tab PO PRN (17:24)
[2017-07-02] MEDS ORDERED: Labetalol 25mg/5ml Syringe IVP STA (18:21)
[2017-07-02] MEDS ORDERED: Labetalol 25mg/5ml Syringe ONE (18:27)
[2017-07-02] MEDS ORDERED: Piperacill/Tazo 3.375gm in Dex 3.375 GM/50 ML BAG IVPB SCH (19:30)
[2017-07-02] MEDS: Oxycodone/Acetaminophen 5/325 mg Tab PO PRN (20:30)
[2017-07-02] MEDS: (Lantus) Insulin Glargine, Recombinant SC SCH (21:34)
--- NOTE | 2017-07-02 21:59 | CP.PCM.PN ---
Subjective - Date & Time of Evaluation Date of Evaluation: 07/02/17 Time of Evaluation: 21:58 - Subjective Subjective: The patient today underwent incision and drainage. Complaining of pain in the left foot. Allergies well. He denies any chest pain. No shortness of breath. Patient blood sugar is much controlled than before. Vital signs reviewed No neck vein distention noted Chest good air entry bilaterally, no wheezing or rales noted CVS regular heart sound, no murmur noted Abdomen soft, nontender. Extremities no pedal edema MEDICAL CARE ADMINISTRATOR alert awake oriented -3, no functional neurological deficit Patient/family Elevated sugar still noted Assessment and recommendation: 41-year-old male admitted with new-onset diabetes, and associated cellulitis and abscess in the left foot. On antibiotic. Appreciate. Infectious disease as well as podiatric consultation. On antibiotic. Patient may need a PICC line. We'll continue the IV antibiotic, culture Objective - Vital Signs/Intake and Output Vital Signs (last 24 hours): Temp Pulse Resp BP Pulse Ox 98 F 74 14 148/99 H 95 07/02/17 19:00 07/02/17 19:00 07/02/17 19:00 07/02/17 19:00 07/02/17 18:45 - Medications Medications: Current Medications Acetaminophen (Tylenol 325mg Tab) 650 mg PO Q6 PRN PRN Reason: Pain, Mild (1-3) Enoxaparin Sodium (Lovenox) 40 mg SC DAILY [facility] Last Admin: 07/01/17 09:05 Dose: 40 mg Glipizide (Glucotrol) 5 mg PO ACB [facility] Vancomycin/Sodium Chloride (Vancomycin 1 Gm/Ns 200 Ml) 1 gm in 200 mls @ 166.6 mls/hr IVPB Q12H [facility] Stop: 07/05/17 22:31 Last Admin: 07/02/17 21:33 Dose: 166.6 mls/hr Piperacillin Sod/Tazobactam Sod (Zosyn 3.375 Gm Iv Premix) 3.375 gm in 50 mls @ 100 mls/hr IVPB Q6H [facility] Last Admin: 07/02/17 21:32 Dose: 100 mls/hr Insulin Glargine (Lantus) 10 unit SC HS [facility] Last Admin: 07/02/17 21:34 Dose: 10 units Insulin Human Regular (Novolin R) 0 unit SC ACHS [facility] PRN Reason: Protocol Last Admin: 07/02/17 21:31 Dose: Not Given Metformin HCl (Glucophage) 500 mg PO BID [facility] Oxycodone/Acetaminophen (Percocet 5/325 Mg Tab) 1 tab PO Q4H PRN PRN Reason: Pain, moderate (4-7) Stop: 07/05/17 17:25 Oxycodone/Acetaminophen (Percocet 5/325 Mg Tab) 2 tab PO Q6H PRN PRN Reason: Pain, severe (8-10) Stop: 07/05/17 17:25 Last Admin: 07/02/17 20:30 Dose: 2 tab Pantoprazole Sodium (Protonix Inj) 40 mg IVP DAILY [facility] Last Admin: 07/02/17 13:34 Dose: 40 mg - Labs Labs: 07/02/17 07:03 07/01/17 07:07 PT 12.3 SECONDS (9.7-12.2) H 07/02/17 11:09 INR 1.1 07/02/17 11:09
[2017-07-02] MEDS ORDERED: HYDROmorphone 0.5 mg/0.5 ml ISec IVP STA (22:02)
[2017-07-03 00:27] VITALS: RESP 20
--- NOTE | 2017-07-03 04:42 | OP ---
PROCEDURE DATE: 07/02/2017 PREOPERATIVE DIAGNOSES: 1. Left foot plantar space abscess. 2. Left foot fourth metatarsal osteomyelitis. POSTOPERATIVE DIAGNOSIS: Left foot plantar space abscess. PROCEDURE PERFORMED: Left foot incision and drainage of abscess. PRIMARY SURGEON: Huy Holm DPM ELECTRIC SPOT WELDER: Kentrell Self, PGY 2 ANESTHESIOLOGIST: Dr. Carey. ANESTHESIA TYPE: General LMA. SPECIMENS: Left foot wound culture. INDICATIONS: The patient is a 41-year-old male with the above stated diagnoses. The patient has exhausted all conservative treatment options and is now in need of surgical intervention. The patient signed the surgical consent after careful explanation of risks, benefits, complications, and potential alternatives to proposed surgical procedure. No guarantees were either given or implied. All patient's questions were answered to his satisfaction. PREPARATION: The patient's n.p.o. status was confirmed prior to bringing the patient to the operating room. The patient was brought into the operating room and placed on the operating room table in a supine position. Once general anesthesia was confirmed to have been achieved, the patient's left foot was then prepped and draped in usual sterile manner and the procedure was begun. PROCEDURE: Left foot incision and drainage of plantar abscess. DESCRIPTION OF PROCEDURE: Attention was then directed to the plantar aspect of the patient's left foot where an approximately 4 cm curvilinear incision was made extending inferior to the medial side of the fourth metatarsal and terminating in the plantar arch. This incision was extended down through the subcutaneous tissue layers with care being taken to identify, avoid, and retract all vital neurovascular structures. All bleeders were cauterized as needed. At this time, incision have been made through previous point of entry, which was noted to be 0.8 x 0.5 cm, was divided and excised and passed from the operating field. Using blunt dissection, via hemostat, sinus tract entry point was explored and sinus tract from the ulceration extending deep was exposed and approximately 2 mL of purulent drainage was produced and expressed. Wound culture was then taken at this time and passed from the operative field. At this time, full expression, and no additional purulence was expressed at this time. Soft tissue planes were explored to recover any additional sinus tracts and potential pockets of purulence or abscesses. None were discovered at this time. At this time, all nonviable soft tissue was resected and excised using #15 blade. Upon satisfaction, simple pulse lavage system was introduced and copious amounts of sterile saline was used to lavage area. Once lavage complete, soft tissue planes were inspected and all nonviable soft tissue was excised and passed from the operative field. With satisfactory debridement and drainage completed, surgical site was then re-approximated using 3-0 nylon in a simple suture type fashion. Central point left opened and 1/4 inch iodoform packing was introduced to allow adequate drainage of abscess site postoperatively. Left foot was then cleansed with sterile saline. The patient received a total of 10 mL of 0.5% Marcaine plain in a local block type fashion to the surgical area. Surgical site was then dressed with Xeroform, 4 x 4 gauze, Kerlix, Coban. POSTOPERATIVE CONDITION: The patient tolerated the anesthesia and procedure well and was escorted to the recovery room with vital signs stable and neurovascular status intact. The patient had no complaints. No immediate complications. The patient will be monitored while the patient remains in-house. Kentrell Self DPM Huy Holm DPM [facility]ELDA
[2017-07-03] MEDS: Piperacill/Tazo 3.375gm in Dex 3.375 GM/50 ML BAG IVPB SCH ×4 (04:50→21:50)
[2017-07-03] MEDS: Oxycodone/Acetaminophen 5/325 mg Tab PO PRN (04:59)
[2017-07-03 07:22] LABS: BASO % 0.4 % (0.0-2.0); EOS # 0.3 K/uL (0.0-0.7); HEMOGLOBIN 11.6 g/dL (12.0-18.0); LYMPH # 1.2 K/uL (1.0-4.3); LYMPH % 15.7 % (20.0-40.0); MEAN CELL VOLUME 85.7 fL (80.0-94.0); MEAN CORPUSCULAR HEMOGLOBIN 30.4 pg (27.0-31.0); MEAN CORPUSCULAR HGB CONC 35.5 g/dL (33.0-37.0); MEAN PLATELET VOLUME 8.2 fL (7.2-11.7); MONO # 0.6 K/uL (0.0-0.8); MONO % 7.7 % (0.0-10.0); NEUT # 5.7 K/uL (1.8-7.0); NEUT % 72.2 % (50.0-75.0); NRBC % 0.1 % (0.0-2.0); RBC 3.8 Mil/uL (4.40-5.90); WHITE BLOOD COUNT 7.9 K/uL (4.8-10.8)
[2017-07-03 07:39] LABS: ALB/GLOB RATIO 1.1 (1.0-2.1); ALBUMIN 3.6 g/dL (3.5-5.0); ALT/SGPT 24 U/L (21-72); AST/SGOT 21 U/L (17-59); BLOOD UREA NITROGEN 12 mg/dL (9-20); CALCIUM 9.3 mg/dl (8.6-10.4); GFR AFRICAN-AMERICAN > 60; GFR NON-AFRICAN AMERICAN > 60
[2017-07-03] MEDS: (Novolin R) Insulin Human Regular 100 units/ml vial SC SCH ×4 (07:46→21:58)
--- NOTE | 2017-07-03 09:59 | CP.PCM.PN ---
Subjective - Date & Time of Evaluation Date of Evaluation: 07/03/17 Time of Evaluation: 09:56 - Subjective Subjective: Post op day 1 I&D abscess left plantar foot .No Complaints . Op site looks good . Infection resolving well . No drainage or purulence noted . Incision line intact . Packing advanced and betadine sterile dressing applied. .Afebrile. Objective - Vital Signs/Intake and Output Vital Signs (last 24 hours): Temp Pulse Resp BP Pulse Ox 98 F 88 20 121/80 96 07/03/17 07:20 07/03/17 07:20 07/03/17 07:20 07/03/17 07:20 07/03/17 07:20 Intake and Output: 07/03/17 07/03/17 06:59 18:59 Intake Total 850 Output Total 800 Balance 50 - Medications Medications: Current Medications Acetaminophen (Tylenol 325mg Tab) 650 mg PO Q6 PRN PRN Reason: Pain, Mild (1-3) Enoxaparin Sodium (Lovenox) 40 mg SC DAILY [facility] Last Admin: 07/01/17 09:05 Dose: 40 mg Glipizide (Glucotrol) 5 mg PO ACB [facility] Last Admin: 07/03/17 07:48 Dose: 5 mg Vancomycin/Sodium Chloride (Vancomycin 1 Gm/Ns 200 Ml) 1 gm in 200 mls @ 166.6 mls/hr IVPB Q12H [facility] Stop: 07/05/17 22:31 Last Admin: 07/02/17 21:33 Dose: 166.6 mls/hr Piperacillin Sod/Tazobactam Sod (Zosyn 3.375 Gm Iv Premix) 3.375 gm in 50 mls @ 100 mls/hr IVPB Q6H [facility] Last Admin: 07/03/17 04:50 Dose: 100 mls/hr Insulin Glargine (Lantus) 10 unit SC HS [facility] Last Admin: 07/02/17 21:34 Dose: 10 units Insulin Human Regular (Novolin R) 0 unit SC ACHS [facility] PRN Reason: Protocol Last Admin: 07/03/17 07:46 Dose: 4 unit Metformin HCl (Glucophage) 500 mg PO BID [facility] Oxycodone/Acetaminophen (Percocet 5/325 Mg Tab) 1 tab PO Q4H PRN PRN Reason: Pain, moderate (4-7) Stop: 07/05/17 17:25 Saccharomyces Boulardii (Florastor) 250 mg PO TID [facility] - Labs Labs: 07/03/17 07:02 07/03/17 07:02 PT 12.3 SECONDS (9.7-12.2) H 07/02/17 11:09 INR 1.1 07/02/17 11:09
[2017-07-03] MEDS: Enoxaparin 40 mg Syringe SC SCH (10:51)
[2017-07-03] MEDS: Saccharomyces Boulardi 250 mg Cap PO SCH ×3 (10:51→18:47)
[2017-07-03] MEDS: Vancomycin 1 gm/NS 200 ml 1 GM/200 ML BAG IVPB SCH ×2 (10:52→22:34)
--- NOTE | 2017-07-03 12:48 | CP.PCM.PN ---
Subjective - Date & Time of Evaluation Date of Evaluation: 07/03/17 Time of Evaluation: 12:47 - Subjective Subjective: Patient with new-onset diabetes. Admitted with left foot cellulitis, abscess. Currently an antibiotic. Yesterday patient underwent incision and drainage. The culture is pending. Currently on antibiotic including vancomycin. No fever Pedal examination is unremarkable. Chest good air entry bilaterally regular heart sound nontender abdomen Labs reviewed Nonspecific. Coagulase-negative Staphylococcus aureus growth noted in the wound, but definite organism pending Assessment and recommendation: 41 male with diabetes admitted with cellulitis of the left foot and complicated with infection. Abscess. Status post incision and drainage. Awaiting for culture will follow the patient Patient will need possibly PICC line, and long-term IV antibiotic Objective - Vital Signs/Intake and Output Vital Signs (last 24 hours): Temp Pulse Resp BP Pulse Ox 98 F 88 20 121/80 96 07/03/17 07:20 07/03/17 07:20 07/03/17 07:20 07/03/17 07:20 07/03/17 07:20 Intake and Output: 07/03/17 07/03/17 06:59 18:59 Intake Total 850 Output Total 800 Balance 50 - Medications Medications: Current Medications Acetaminophen (Tylenol 325mg Tab) 650 mg PO Q6 PRN PRN Reason: Pain, Mild (1-3) Enoxaparin Sodium (Lovenox) 40 mg SC DAILY [facility] Last Admin: 07/03/17 10:51 Dose: 40 mg Glipizide (Glucotrol) 5 mg PO ACB [facility] Last Admin: 07/03/17 07:48 Dose: 5 mg Vancomycin/Sodium Chloride (Vancomycin 1 Gm/Ns 200 Ml) 1 gm in 200 mls @ 166.6 mls/hr IVPB Q12H [facility] Stop: 07/05/17 22:31 Last Admin: 07/03/17 10:52 Dose: 166.6 mls/hr Piperacillin Sod/Tazobactam Sod (Zosyn 3.375 Gm Iv Premix) 3.375 gm in 50 mls @ 100 mls/hr IVPB Q6H [facility] Last Admin: 07/03/17 10:51 Dose: 100 mls/hr Insulin Glargine (Lantus) 10 unit SC [facility] Last Admin: 07/02/17 21:34 Dose: 10 units Insulin Human Regular (Novolin R) 0 unit SC ACHS [facility] PRN Reason: Protocol Last Admin: 07/03/17 07:46 Dose: 4 unit Metformin HCl (Glucophage) 500 mg PO BID [facility] Last Admin: 07/03/17 10:51 Dose: 500 mg Oxycodone/Acetaminophen (Percocet 5/325 Mg Tab) 1 tab PO Q4H PRN PRN Reason: Pain, moderate (4-7) Stop: 07/05/17 17:25 Saccharomyces Boulardii (Florastor) 250 mg PO TID [facility] Last Admin: 07/03/17 10:51 Dose: 250 mg - Labs Labs: 07/03/17 07:02 07/03/17 07:02 PT 12.3 SECONDS (9.7-12.2) H 07/02/17 11:09 INR 1.1 07/02/17 11:09
[2017-07-03] MEDS: (Lantus) Insulin Glargine, Recombinant SC SCH (21:59)
[2017-07-04] MEDS: Piperacill/Tazo 3.375gm in Dex 3.375 GM/50 ML BAG IVPB SCH ×4 (04:08→21:13)
[2017-07-04] MEDS: (Novolin R) Insulin Human Regular 100 units/ml vial SC SCH ×4 (08:46→22:30)
[2017-07-04] MEDS: Vancomycin 1 gm/NS 200 ml 1 GM/200 ML BAG IVPB SCH ×2 (10:21→21:59)
[2017-07-04] MEDS: Saccharomyces Boulardi 250 mg Cap PO SCH ×3 (10:22→18:23)
[2017-07-04] MEDS: Enoxaparin 40 mg Syringe SC SCH (10:22)
--- NOTE | 2017-07-04 13:35 | CP.PCM.PN ---
Subjective - Date & Time of Evaluation Date of Evaluation: 07/04/17 Time of Evaluation: 10:40 - Subjective Subjective: Progress note - Dr. Holm 41 year old male patient is seen 2 days s/p I&D abscess left plantar foot. Patient is AAOx3 and is in NAD. Patient offers no complaints at this time. Patient denies of any acute overnight events. Reports that he had little fever overnight but it resolved. Denies of any N/V/C/SOB/CP/headache. denies of having any other pedal complains at this time. Objective - Vital Signs/Intake and Output Vital Signs (last 24 hours): Temp Pulse Resp BP Pulse Ox 98.2 F 80 20 119/76 98 07/04/17 08:00 07/04/17 08:00 07/04/17 08:00 07/04/17 08:00 07/04/17 08:00 Intake and Output: 07/04/17 07/04/17 06:59 18:59 Intake Total 850 Output Total 1750 Balance -900 - Medications Medications: Current Medications Acetaminophen (Tylenol 325mg Tab) 650 mg PO Q6 PRN PRN Reason: Pain, Mild (1-3) Enoxaparin Sodium (Lovenox) 40 mg SC DAILY [facility] Last Admin: 07/04/17 10:22 Dose: 40 mg Glipizide (Glucotrol) 5 mg PO ACB [facility] Last Admin: 07/04/17 08:46 Dose: 5 mg Vancomycin/Sodium Chloride (Vancomycin 1 Gm/Ns 200 Ml) 1 gm in 200 mls @ 166.6 mls/hr IVPB Q12H [facility] Stop: 07/05/17 22:31 Last Admin: 07/04/17 10:21 Dose: 166.6 mls/hr Piperacillin Sod/Tazobactam Sod (Zosyn 3.375 Gm Iv Premix) 3.375 gm in 50 mls @ 100 mls/hr IVPB Q6H [facility] Last Admin: 07/04/17 10:21 Dose: 100 mls/hr Insulin Glargine (Lantus) 10 unit SC HS [facility] Last Admin: 07/03/17 21:59 Dose: 10 units Insulin Human Regular (Novolin R) 0 unit SC ACHS [facility] PRN Reason: Protocol Last Admin: 07/04/17 12:29 Dose: 2 unit Metformin HCl (Glucophage) 500 mg PO BID [facility] Last Admin: 07/04/17 10:22 Dose: 500 mg Oxycodone/Acetaminophen (Percocet 5/325 Mg Tab) 1 tab PO Q4H PRN PRN Reason: Pain, moderate (4-7) Stop: 07/05/17 17:25 Last Admin: 07/03/17 12:59 Dose: 1 tab Saccharomyces Boulardii (Florastor) 250 mg PO TID [facility] Last Admin: 07/04/17 10:22 Dose: 250 mg - Labs Labs: 07/03/17 07:02 07/03/17 07:02 PT 12.3 SECONDS (9.7-12.2) H 07/02/17 11:09 INR 1.1 07/02/17 11:09 - Constitutional Appears: Well, Non-toxic, No Acute Distress - Extremities Exam Additional comments: Left lower extremity focused. VASC: DP and PT pulses fully palpable graded 3/4. CFT to all digits is prompt, < 3 seconds. no pitting or non-pitting edema noted. Temperature runs warm to cool from proximal to distal. Pedal hair growth noted to level of digits. DERM: Surgical sutures are well coapted with no dehiscence, from the packing site mild sanguineous discharge noted up on advancing, no purulent drainage, no malodor, no erythema, no clinical suspicion of active infection at this time NERUO: Protective sensation grossly intact extending to level of digits. Sharp dull sensation intact. MUSK: No gross deformities noted. mild tenderness to palpation noted at the surgical site. Lower leg and pedal muscle strength graded 5/5 in all 4 major muscle groups. - Neurological Exam Neurological Exam: Alert, Awake, Oriented x3 - Psychiatric Exam Psychiatric exam: Normal Affect, Normal Mood Assessment and Plan - Assessment and Plan (Free Text) Assessment: 41 year old male patient evaluated 2 days s/p I&D abscess left plantar foot. Plan: Pt seen and evaluated. Discussed finding and plan with attending, Dr. Holm, who endorsed. Chart, labs, and vitals reviewed. Afebrile, absent leukocytosis. Prior X-rays reviewed- negative for soft tissue emphysema. Prior MRI results: plantar abscess and 4th metatarsal head OM Infectious disease consult - recommendations appreciated. Continue the IV antibiotic. Prior Wound cx results- Coagulase negative staphylococcus species. Intra-op wound cultures - show no growth - prilim Podiatry will continue to follow patient while inhouse.
--- NOTE | 2017-07-04 19:11 | CP.PCM.PN ---
Subjective - Date & Time of Evaluation Date of Evaluation: 07/04/17 Time of Evaluation: 19:11 - Subjective Subjective: Patient is feeling better. Minimal pain noted. Tolerating. No chest pain or shortness of breath eating well Vital signs reviewed No neck vein distention noted Chest good air entry bilaterally, no wheezing or rales noted CVS regular heart sound, no murmur noted Abdomen soft, nontender. 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 The wound culture showing Staphylococcus aureus, antibiotic sensitivities pending Assessment and recommendation: 41-year-old male admitted with a cellulitis. Abscess in the left foot. New-onset diabetes. Awaiting culture, if the culture is positive depending upon the antibiotic sensitivity patient will be discharged with the antibiotic. Objective - Vital Signs/Intake and Output Vital Signs (last 24 hours): Temp Pulse Resp BP Pulse Ox 98.2 F 58 L 20 133/80 98 07/04/17 16:00 07/04/17 16:00 07/04/17 16:00 07/04/17 16:00 07/04/17 16:00 - Medications Medications: Current Medications Acetaminophen (Tylenol 325mg Tab) 650 mg PO Q6 PRN PRN Reason: Pain, Mild (1-3) Enoxaparin Sodium (Lovenox) 40 mg SC DAILY [facility] Last Admin: 07/04/17 10:22 Dose: 40 mg Glipizide (Glucotrol) 5 mg PO ACB [facility] Last Admin: 07/04/17 08:46 Dose: 5 mg Vancomycin/Sodium Chloride (Vancomycin 1 Gm/Ns 200 Ml) 1 gm in 200 mls @ 166.6 mls/hr IVPB Q12H [facility] Stop: 07/05/17 22:31 Last Admin: 07/04/17 10:21 Dose: 166.6 mls/hr Piperacillin Sod/Tazobactam Sod (Zosyn 3.375 Gm Iv Premix) 3.375 gm in 50 mls @ 100 mls/hr IVPB Q6H [facility] Last Admin: 07/04/17 16:40 Dose: 100 mls/hr Insulin Human Regular (Novolin R) 0 unit SC ACHS [facility] PRN Reason: Protocol Last Admin: 07/04/17 17:30 Dose: Not Given Metformin HCl (Glucophage) 850 mg PO BIDCC [facility] Saccharomyces Boulardii (Florastor) 250 mg PO TID [facility] Last Admin: 07/04/17 18:23 Dose: 250 mg - Labs Labs: 07/03/17 07:02 07/03/17 07:02 PT 12.3 SECONDS (9.7-12.2) H 07/02/17 11:09 INR 1.1 07/02/17 11:09
[2017-07-05] MEDS: Piperacill/Tazo 3.375gm in Dex 3.375 GM/50 ML BAG IVPB SCH ×3 (04:33→16:59)
--- NOTE | 2017-07-05 08:35 | CP.PCM.PN ---
Subjective - Date & Time of Evaluation Date of Evaluation: 07/05/17 Time of Evaluation: 08:34 - Subjective Subjective: Patient is currently feeling better. Denies any chest pain or shortness of breath Vital signs reviewed No neck vein distention noted Chest good air entry bilaterally, no wheezing or rales noted CVS regular heart sound, no murmur noted Abdomen soft, nontender. 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 New onset diabetes. Sugar controlled well. Awaiting antibiotic sensitivity, and the patient will be discharged home after that. Objective - Vital Signs/Intake and Output Vital Signs (last 24 hours): Temp Pulse Resp BP Pulse Ox 98.0 F 65 20 112/75 95 07/05/17 08:15 07/05/17 08:15 07/05/17 08:15 07/05/17 08:15 07/05/17 08:15 Intake and Output: 07/05/17 07/05/17 06:59 18:59 Intake Total 780 Output Total 600 Balance 180 - Medications Medications: Current Medications Acetaminophen (Tylenol 325mg Tab) 650 mg PO Q6 PRN PRN Reason: Pain, Mild (1-3) Last Admin: 07/04/17 21:33 Dose: 650 mg Enoxaparin Sodium (Lovenox) 40 mg SC DAILY [facility] Last Admin: 07/04/17 10:22 Dose: 40 mg Glipizide (Glucotrol) 5 mg PO ACB [facility] Last Admin: 07/04/17 08:46 Dose: 5 mg Vancomycin/Sodium Chloride (Vancomycin 1 Gm/Ns 200 Ml) 1 gm in 200 mls @ 166.6 mls/hr IVPB Q12H [facility] Stop: 07/05/17 22:31 Last Admin: 07/04/17 21:59 Dose: 166.6 mls/hr Piperacillin Sod/Tazobactam Sod (Zosyn 3.375 Gm Iv Premix) 3.375 gm in 50 mls @ 100 mls/hr IVPB Q6H [facility] Last Admin: 07/05/17 04:33 Dose: 100 mls/hr Insulin Human Regular (Novolin R) 0 unit SC ACHS [facility] PRN Reason: Protocol Last Admin: 07/04/17 22:30 Dose: Not Given Metformin HCl (Glucophage) 850 mg PO BIDCC [facility] Saccharomyces Boulardii (Florastor) 250 mg PO TID [facility] Last Admin: 07/04/17 18:23 Dose: 250 mg - Labs Labs: 07/03/17 07:02 07/03/17 07:02 PT 12.3 SECONDS (9.7-12.2) H 07/02/17 11:09 INR 1.1 07/02/17 11:09
[2017-07-05] MEDS: (Novolin R) Insulin Human Regular 100 units/ml vial SC SCH ×4 (08:38→22:47)
[2017-07-05] MEDS: Enoxaparin 40 mg Syringe SC SCH (10:27)
[2017-07-05] MEDS: Vancomycin 1 gm/NS 200 ml 1 GM/200 ML BAG IVPB SCH ×2 (10:27→22:48)
[2017-07-05] MEDS: Saccharomyces Boulardi 250 mg Cap PO SCH ×3 (10:29→17:57)
--- NOTE | 2017-07-05 13:59 | CP.PCM.PN ---
Subjective - Date & Time of Evaluation Date of Evaluation: 07/05/17 Time of Evaluation: 13:54 - Subjective Subjective: Podiatry Progress note for Dr. Holm 41 year old male is seen 3 days s/p I&D abscess left plantar foot with attending , Dr Holm. Patient is AAOx3 and is in NAD. Patient offers no complaints at this time. Patient denies of any acute overnight events. He currently denies any n/v/f/c/sob/cp. Objective - Vital Signs/Intake and Output Vital Signs (last 24 hours): Temp Pulse Resp BP Pulse Ox 98.0 F 65 20 112/75 95 07/05/17 08:15 07/05/17 08:15 07/05/17 08:15 07/05/17 08:15 07/05/17 08:15 Intake and Output: 07/05/17 07/05/17 06:59 18:59 Intake Total 780 Output Total 600 Balance 180 - Medications Medications: Current Medications Acetaminophen (Tylenol 325mg Tab) 650 mg PO Q6 PRN PRN Reason: Pain, Mild (1-3) Last Admin: 07/04/17 21:33 Dose: 650 mg Enoxaparin Sodium (Lovenox) 40 mg SC DAILY [facility]S AT [facility] Last Admin: 07/05/17 10:27 Dose: 40 mg Glipizide (Glucotrol) 5 mg PO ACB [facility]S AT [facility] Last Admin: 07/05/17 08:37 Dose: 5 mg Vancomycin/Sodium Chloride (Vancomycin 1 Gm/Ns 200 Ml) 1 gm in 200 mls @ 166.6 mls/hr IVPB Q12H [facility]S AT [facility] Stop: 07/05/17 22:31 Last Admin: 07/05/17 10:27 Dose: 166.6 mls/hr Piperacillin Sod/Tazobactam Sod (Zosyn 3.375 Gm Iv Premix) 3.375 gm in 50 mls @ 100 mls/hr IVPB Q6H [facility] 234 B[facility]S AT [facility] Last Admin: 07/05/17 10:27 Dose: 100 mls/hr Insulin Human Regular (Novolin R) 0 unit SC ACHS [facility] PRN Reason: Protocol Last Admin: 07/05/17 13:24 Dose: 3 unit Metformin HCl (Glucophage) 850 mg PO BIDCC [facility] 234 B[facility]S AT [facility] Last Admin: 07/05/17 08:38 Dose: 850 mg Saccharomyces Boulardii (Florastor) 250 mg PO TID [facility] Last Admin: 07/05/17 13:23 Dose: 250 mg - Labs Labs: 07/03/17 07:02 07/03/17 07:02 PT 12.3 SECONDS (9.7-12.2) H 07/02/17 11:09 INR 1.1 07/02/17 11:09 - Constitutional Appears: Well, Non-toxic, No Acute Distress - Extremities Exam Additional comments: Left lower extremity focused exam: VASC: DP and PT pulses palpable 2/4. CFT to all digits is prompt, < 3 seconds. no pitting or non-pitting edema noted. Temperature runs warm to cool from proximal to distal. Pedal hair growth noted to level of digits. DERM: Surgical sutures are well coapted with no dehiscence, no purulent drainage , no malodor, no erythema, no clinical suspicion of infection noted at this time NERUO: Protective sensation grossly intact extending to level of digits. Sharp dull sensation intact. ORTHO:mild tenderness to palpation noted at the surgical site - Neurological Exam Neurological Exam: Alert, Awake, Oriented x3 - Psychiatric Exam Psychiatric exam: Normal Affect, Normal Mood Assessment and Plan - Assessment and Plan (Free Text) Assessment: 41 year old male patient evaluated 3 days s/p I&D abscess left plantar foot Plan: Patient examied and evaluated with attending, Dr. Holm Chart, labs, and vitals reviewed. Afebrile Continue the IV antibiotic. Prior Wound cx results- Coagulase negative staphylococcus species. Intra-op wound cultures -Staph aureus Patient stable for d/c from podiatry, will follow up out patient with Dr. Holm Podiatry will continue to follow patient while inhouse.
[2017-07-05 16:42] VITALS: O2SAT 98
[2017-07-05] MEDS: Piperacillin/Tazobact 3.375 GM in Sodium Chloride 100 ML IVPB SCH (22:47)
[2017-07-06] MEDS: Piperacillin/Tazobact 3.375 GM in Sodium Chloride 100 ML IVPB SCH ×2 (03:54→09:03)
[2017-07-06] MEDS: (Novolin R) Insulin Human Regular 100 units/ml vial SC SCH ×2 (08:16→13:37)
[2017-07-06] MEDS: Saccharomyces Boulardi 250 mg Cap PO SCH ×2 (09:02→14:44)
[2017-07-06] MEDS: Enoxaparin 40 mg Syringe SC SCH (09:03)
--- NOTE | 2017-07-06 10:05 | CP.PCM.PN ---
Subjective - Date & Time of Evaluation Date of Evaluation: 07/06/17 Time of Evaluation: 10:05 - Subjective Subjective: Podiatry Progress note for Dr. Holm 41 year old male is seen 4 days s/p I&D abscess left plantar foot. Patient is AAOx3 and is in NAD. Patient currently denies any pain to his left foot. Dressing is clean, dry, intact. Patient denies of any acute overnight events. He currently denies any n/v/f/c/sob/cp. Objective - Vital Signs/Intake and Output Vital Signs (last 24 hours): Temp Pulse Resp BP Pulse Ox 98.0 F 65 20 109/71 98 07/06/17 08:27 07/06/17 08:27 07/06/17 08:27 07/06/17 08:27 07/06/17 08:27 - Medications Medications: Current Medications Acetaminophen (Tylenol 325mg Tab) 650 mg PO Q6 PRN PRN Reason: Pain, Mild (1-3) Last Admin: 07/04/17 21:33 Dose: 650 mg Enoxaparin Sodium (Lovenox) 40 mg SC DAILY [facility] Last Admin: 07/06/17 09:03 Dose: 40 mg Glipizide (Glucotrol) 5 mg PO ACB [facility] Last Admin: 07/06/17 08:15 Dose: 5 mg Piperacillin Sod/Tazobactam (Sod 3.375 gm/ Sodium Chloride) 100 mls @ 100 mls/ hr IVPB Q6H [facility] Last Admin: 07/06/17 09:03 Dose: 100 mls/hr Insulin Human Regular (Novolin R) 0 unit SC ACHS [facility] PRN Reason: Protocol Last Admin: 07/06/17 08:16 Dose: 2 unit Metformin HCl (Glucophage) 850 mg PO BIDCC [facility] Last Admin: 07/06/17 08:15 Dose: 850 mg Saccharomyces Boulardii (Florastor) 250 mg PO TID [facility] Last Admin: 07/06/17 09:02 Dose: 250 mg - Labs Labs: 07/03/17 07:02 07/03/17 07:02 PT 12.3 SECONDS (9.7-12.2) H 07/02/17 11:09 INR 1.1 07/02/17 11:09 - Constitutional Appears: Well, Non-toxic, No Acute Distress - Extremities Exam Additional comments: Left lower extremity focused exam: VASC: DP and PT pulses palpable 2/4. CFT to all digits < 3 seconds. no pitting or non-pitting edema noted. Skin temperature runs warm to cool from proximal to distal. Pedal hair growth noted to level of digits. DERM: Surgical sutures are well coapted with no dehiscence, no purulent drainage , no malodor, no erythema, no clinical suspicion of infection noted at this time NERUO: Protective sensation grossly intact extending to level of digits. Sharp dull sensation intact. ORTHO: Mild tenderness to palpation noted at the surgical site - Neurological Exam Neurological Exam: Alert, Awake, Oriented x3 - Psychiatric Exam Psychiatric exam: Normal Affect, Normal Mood Assessment and Plan - Assessment and Plan (Free Text) Assessment: 41 year old male patient evaluated 4 days s/p I&D abscess left plantar foot Plan: Patient examined and evaluated with attending, Dr. Holm Chart, labs, and vitals reviewed;Afebrile Continue IV abx per ID Prior Wound cx results- Coagulase negative staphylococcus species. Intra-op wound cultures -Staph aureus Patient stable for d/c from podiatry, will follow up out patient with Dr. Holm Podiatry will continue to follow patient while inhouse.
[2017-07-06] MEDS ORDERED: DAPTOmycin 500 MG in Sodium Chloride 0.9% 100 ML IV ONE (12:00)
--- NOTE | 2017-07-06 12:51 | PCM.SURG1 ---
Surgeon's Initial Post Op Note - Surgeon's Notes Surgeon: Kit Mckeon MD Shoe Handler: NONE Type of Anesthesia: Local Pre-Operative Diagnosis: Infection Operative Findings: US showed patent right basilic vein Post-Operative Diagnosis: Infection Operation Performed: right arm picc, 35 cm. Tip is in the SVC. Specimen/Specimens Removed: none Estimated Blood Loss: EBL {In ML}: 2 Blood Products Given: N/A Drains Used: No Drains Post-Op Condition: Fair Date of Surgery/Procedure: 07/06/17 Time of Surgery/Procedure: 12:45
--- NOTE | 2017-07-06 15:50 | CP.PCM.PN ---
Subjective - Date & Time of Evaluation Date of Evaluation: 07/06/17 Time of Evaluation: 15:50 - Subjective Subjective: - SEGUIMIENTO CON EL DR. OLSEN EN LA OFICINA EN EL PLAZO DE 7 ALEJO DESPUS DE LA DESCARGA --- LLAME AL OFICINA MAANA PARA HACER DE SANTIAGO VIJAY. - SEGUIMIENTO CON EL DR. JALLOH (PODIATRA) EN LA OFICINA EL LUNES, 13/07/17 --- LLAME A LA OFICINA MAANA PARA SOLICITAR UN HORARIO PARA DE SANTIAGO VIJAY. PT STABLE FOR D/C WITH PICC LINE FOR [address] ABX PER DR[address] CARRION. PT WILL COME TO THE [facility]PATIENT [facility] EVERYDAY EARLY IN THE MORNING BEFORE WORK FOR HIS ABX. RX AND F/U INFORMATION DISCUSSED AT LENGTH WITH THE PT. SEE BELOW FOR SPECIFIC D/C INSTRUCTIONS. - CONTINUAR MEDICAMENTOS EN EL HOGAR EN CASA HETAL HABITUAL. -YA AG SIDO DISPUESTO A COMENZAR IV ANTIBITICOS EN EL CENTRO DE INFUSIN PARA PACIENTES [facility] ([facility]), 07/07. PUEDE ESTAR AQU AMARAL PRONTO HETAL LAS 7:00 AM. - EN EL PRIMER DA, ASEGRESE DE REGISTRARSE EN LA PLANTA BAJA. TODOS LOS ALEJO DESPUS DE QUE PUEDAS NOTIFICAR LA SEGURIDAD Y ELLOS TE ENVIAR AL CENTRO DE INFUSIN. -TENGA CUIDADO CON LA LNEA PICC EN DE SANTIAGO BRAZO DERECHO; MANTNGALO SECO Y LIMPIO; CUBRA CON PLSTICO PARA DUCHA. - NECESITAR EL IV ANTIBITICO (CUBICIN) MEKA VEZ AL DA ION 6 SEMANAS TOTALES (COMIENZ EL 06/07/17 Y LA LTIMA DOSIS SE ADJUDICA EL 07/17/17). CUANDO ACABES - NECESITAR LIMPIAR LA HERIDA EN DE SANTIAGO PIE CADA DA HASTA QUE JOSI EL DR. JALLOH EN DE SANTIAGO OFICINA EL 13/07/17. COMIENCE ESTO EN [facility], 07/07/17; REPITA EL 09/07/17 Y EL 11/07/17. LIMPIARS TU PIE CON "BETADYNE", PERMITIR QUE SEA SECO, LUEGO CUBRIR CON MEKA ESTERIL "ALMOHADILLA 4X4 GAUZE". ENVUELVA ESTO CON MEKA "ENVOLTURA KERLIX GAUZE". -PASE Tenga cuidado con de santiago pie; CON LA DIABETES, [place] PUEDEN SANAR MUY LENTAMENTE. -LOS NUEVOS MEDICAMENTOS PRESCRITOS SON PARA DE SANTIAGO AZCAR. ASEGRESE DE TOMARLOS EXACTAMENTE HETAL SE PRESCRIBE POR DR. MATT ROLLINS. -Meka NUEVA MEDICACIN AG SIDO PRESCRITO PARA PROTEGER DE SANTIAGO ESTMAGO MIENTRAS EST EN LOS ANTIBITICOS (FLORASTOR) - CHRIS DOS VECES AL DA. -Para otras RDENES O PREOCUPACIONES, CONTACTO DR. CARSON ROLLINS. -FOLLOW UP WITH DR. OLSEN IN THE OFFICE WITHIN 7 DAYS OF DISCHARGE---CALL THE OFFICE TOMORROW TO MAKE YOUR APPOINTMENT. -FOLLOW UP WITH DR. JALLOH (DIGITAL PRESS OPERATOR) IN THE OFFICE ON 07/13/17---CALL THE OFFICE TOMORROW TO REQUEST A TIME FOR YOUR APPOINTMENT. -CONTINUE HOME MEDICATIONS AT HOME USUAL. -YOU HAVE BEEN ALREADY ARRANGED TO START IV ANTIBIOTICS AT THE [facility] TOMORROW (WEDNESDAY), . YOU CAN BE HERE EARLY 7:00 AM. -WHEN YOU COME ON YOUR FIRST DAY MAKE SURE YOU REGISTER ON THE GROUND FLOOR. EVERYDAY AFTER THAT YOU CAN NOTIFY SECURITY AND THEY WILL SEND YOU UP TO THE INFUSION CENTER. -BE CAREFUL WITH THE PICC LINE IN YOUR RIGHT ARM; KEEP IT DRY AND CLEAN; COVER WITH PLASTIC FOR SHOWERING. -YOU WILL NEED THE IV ANTIBIOTIC (CUBICIN) ONCE A DAY FOR 6 WEEKS TOTAL ( STARTED ON 07/06/17 AND LAST DOSE TO BE GIVEN ON 07/17/17). WHEN YOU ARE DONE -YOU WILL NEED TO CLEAN THE WOUND ON YOUR FOOT EVERY OTHER DAY UNTIL YOU SEE DR. JALLOH IN HIS OFFICE ON 07/13/17. START THIS ON 07/07/17; REPEAT ON 07/09/17 AND 07/11/17. YOU WILL CLEAN YOUR FOOT WITH "BETADYNE", ALLOW TO DRY, THEN COVER WITH A STERILE "4X4 GAUZE PAD". WRAP THIS WITH A "KERLIX GAUZE WRAP." -PLEASE BE CAREFUL WITH YOUR FOOT; WITH DIABETES, WOUNDS CAN HEAL VERY SLOWLY. -TWO NEW MEDICATIONS PRESCRIBED ARE FOR YOUR SUGAR. MAKE SURE YOU TAKE THEM EXACTLY PRESCRIBED PER DR. OLSEN'S REQUEST. -ONE NEW MEDICATION HAS BEEN PRESCRIBED TO YOU TO PROTECT YOUR STOMACH WHILE ON THE ANTIBIOTICS (FLORASTOR)--TAKE TWICE A DAY. -FOR FURTHER ORDERS OR CONCERNS, CONTACT DR. OLSEN'S OFFICE. Objective - Vital Signs/Intake and Output Vital Signs (last 24 hours): Temp Pulse Resp BP Pulse Ox 98.0 F 65 20 109/71 98 07/06/17 08:27 07/06/17 08:27 07/06/17 08:27 07/06/17 08:27 07/06/17 08:27 Intake and Output: 07/06/17 07/06/17 06:59 18:59 Intake Total 600 Balance 600 - Medications Medications: Current Medications Acetaminophen (Tylenol 325mg Tab) 650 mg PO Q6 PRN PRN Reason: Pain, Mild (1-3) Last Admin: 07/04/17 21:33 Dose: 650 mg Enoxaparin Sodium (Lovenox) 40 mg SC DAILY [facility] Last Admin: 07/06/17 09:03 Dose: 40 mg Glipizide (Glucotrol) 5 mg PO ACB [facility] Last Admin: 07/06/17 08:15 Dose: 5 mg Piperacillin Sod/Tazobactam (Sod 3.375 gm/ Sodium Chloride) 100 mls @ 100 mls/ hr IVPB Q6H [facility] Last Admin: 07/06/17 09:03 Dose: 100 mls/hr Insulin Human Regular (Novolin R) 0 unit SC ACHS [facility] PRN Reason: Protocol Last Admin: 07/06/17 13:37 Dose: 3 unit Metformin HCl (Glucophage) 850 mg PO BIDCC [facility] Last Admin: 07/06/17 08:15 Dose: 850 mg Saccharomyces Boulardii (Florastor) 250 mg PO TID [facility] Last Admin: 07/06/17 14:44 Dose: 250 mg - Labs Labs: 07/03/17 07:02 07/03/17 07:02 PT 12.3 SECONDS (9.7-12.2) H 07/02/17 11:09 INR 1.1 07/02/17 11:09
[2017-07-06 16:02] VITALS: BP 112/73; PULSE 75; TEMP 98.3
--- NOTE | 2017-07-06 21:46 | CP.PCM.DIS ---
Provider - Provider Date of Admission: 06/29/17 17:49 Attending physician: Prince Olsen MD Time Spent in preparation of Discharge (in minutes): 45 Hospital Course - Lab Results Lab Results: Micro Results 07/02/17 16:54 Abscess - Foot-Left Gram Stain - Final 07/02/17 16:54 Abscess - Foot-Left Wound Culture - Final Staphylococcus Aureus 06/29/17 16:15 Blood Blood Culture - Final NO GROWTH AFTER 5 DAYS 06/29/17 16:15 Blood Gram Stain - Final TEST NOT PERFORMED 06/29/17 15:45 Blood Blood Culture - Final NO GROWTH AFTER 5 DAYS 06/29/17 15:45 Blood Gram Stain - Final TEST NOT PERFORMED 06/29/17 20:47 Foot - Left Gram Stain - Final 06/29/17 20:47 Foot - Left Wound Culture - Final Coagulase Neg Staphylococcus Most Recent Lab Values WBC 7.9 K/uL (4.8-10.8) 07/03/17 07:02 RBC 3.80 Mil/uL (4.40-5.90) L 07/03/17 07:02 Hgb 11.6 g/dL (12.0-18.0) L 07/03/17 07:02 Hct 32.5 % (35.0-51.0) L 07/03/17 07:02 MCV 85.7 fL (80.0-94.0) 07/03/17 07:02 MCH 30.4 pg (27.0-31.0) 07/03/17 07:02 MCHC 35.5 g/dL (33.0-37.0) 07/03/17 07:02 RDW 12.0 % (11.5-14.5) 07/03/17 07:02 Plt Count 312 K/uL (130-400) 07/03/17 07:02 MPV 8.2 fL (7.2-11.7) 07/03/17 07:02 Neut % (Auto) 72.2 % (50.0-75.0) 07/03/17 07:02 Lymph % (Auto) 15.7 % (20.0-40.0) L 07/03/17 07:02 Brown % (Auto) 7.7 % (0.0-10.0) 07/03/17 07:02 Eos % (Auto) 4.0 % (0.0-4.0) 07/03/17 07:02 Baso % (Auto) 0.4 % (0.0-2.0) 07/03/17 07:02 Neut # (Auto) 5.7 K/uL (1.8-7.0) 07/03/17 07:02 Lymph # (Auto) 1.2 K/uL (1.0-4.3) 07/03/17 07:02 Brown # (Auto) 0.6 K/uL (0.0-0.8) 07/03/17 07:02 Eos # (Auto) 0.3 K/uL (0.0-0.7) 07/03/17 07:02 Baso # (Auto) 0.0 K/uL (0.0-0.2) 07/03/17 07:02 ESR 88 mm/hr (0-15) H 07/02/17 07:03 PT 12.3 SECONDS (9.7-12.2) H 07/02/17 11:09 INR 1.1 07/02/17 11:09 Sodium 133 mmol/L (132-148) 07/03/17 07:02 Potassium 3.8 mmol/L (3.6-5.2) 07/03/17 07:02 Chloride 94 mmol/L (98-107) L 07/03/17 07:02 Carbon Dioxide 27 mmol/L (22-30) 07/03/17 07:02 Anion Gap 16 (10-20) 07/03/17 07:02 BUN 12 mg/dL (9-20) 07/03/17 07:02 Creatinine 0.8 mg/dL (0.8-1.5) 07/03/17 07:02 Est GFR ( Amer) > 60 07/03/17 07:02 Est GFR (Non-Af Amer) > 60 07/03/17 07:02 POC Glucose (mg/dL) 147 mg/dL (65-110) H 07/06/17 16:47 Random Glucose 277 mg/dL (75-110) H 07/03/17 07:02 Hemoglobin A1c 9.7 % (4.2-6.5) H 06/29/17 21:51 Calcium 9.3 mg/dl (8.6-10.4) 07/03/17 07:02 Total Bilirubin 0.2 mg/dL (0.2-1.3) 07/03/17 07:02 AST 21 U/L (17-59) 07/03/17 07:02 ALT 24 U/L (21-72) 07/03/17 07:02 Alkaline Phosphatase 72 U/L (38-126) 07/03/17 07:02 Total Protein 7.0 g/dL (6.3-8.3) 07/03/17 07:02 Albumin 3.6 g/dL (3.5-5.0) 07/03/17 07:02 Globulin 3.4 gm/dL (2.2-3.9) 07/03/17 07:02 Albumin/Globulin Ratio 1.1 (1.0-2.1) 07/03/17 07:02 Vancomycin Trough 10.8 ug/mL (5.0-10.0) H 07/03/17 07:02 Serum Ketones Negative (NEGATIVE) 06/29/17 16:42 - Hospital Course Hospital Course: Chief complaint: Left leg swelling History of present illness: 41-year-old male with no past medical history came to the office initially, with complaining of one-week of left foot swelling. Patient started the swelling after he had a injury while working, there was a nail pierced the skin in the left foot. He took the nail out. He was okay. The days later he started noticing pus and also blood with the pressure. Since then his condition in the left foot started worsening. He started having increasing pain. Increasing redness. Pain, and unable to walk, limping. He also started noticing chills, but no fever noted. He has no other systemic symptoms except chills. He did not have any medical problems in the past, did not seek any medical doctors. Past medical history none. Surgical history: None. Family history: Father with a heart disease, mother also had a history of diabetes and complications. Social history: Sometimes alcohol. Denies smoking. Drinks coffee. Currently working. Current medications none. Review of systems: Denies any headache. No chest pain or shortness of breath. Denies any nausea vomiting. No abdominal pain. Complaining of left leg pain, left foot pain, swelling, redness. Patient also had a significant abrasion in the left the bottom of the foot. On examination: HEENT PERRLA, neck supple No thyromegaly was noted and no cervical adenopathy noted Chest bilateral good air entry, no wheezing or rales noted CVS regular heart sound, no murmur Abdomen soft and no organomegaly Left leg patient has a 1 plus edema. Patient is also having swelling over the dorsum of the left foot, as well as plantar aspect of the foot. There is a redness, and some streaks of marking noted in the plantar aspect of the mid sole. Ablation noted, and the tip of the base of the fourth metatarsal skin lesions noted, wound present. 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 Patient's labs reviewed. Mild elevation of the WBC noted. ESR elevated. X-ray of the left foot nonspecific. Elevated glucose noted. Assessment and recommendation: 41-year-old male came to the office initially. Patient now came to the emergency room with worsening pain and swelling. Most likely patient has acute cellulitis involving the left foot, and associate it with the edema and systemic inflammatory reaction. Patient also had a nail injury. Patient received a tetanus injection. Currently on IV antibiotic, will continue the vancomycin and Zosyn. Glucose comfort. IV fluids. DVT. GI prophylaxis. Further orders in the chart. Will follow the patient Course in the Hospital: Patient was hospitalized. He was initially started on intravenous vancomycin, and Zosyn. Initial cultures were negative. 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 Infectious disease consultation, podiatric consultation was called. Patient underwent incision and drainage of the left plantar aspect. The wound was showing evidence of methicillin sensitive Staphylococcus aureus. Patient was placed on IV antibiotic including vancomycin. Blood sugar was controlled with metformin and glipizide. Vision was educated about the diabetes. He was given information about the glucose monitoring. Diet contrast was given. PICC line was placed. Patient will be getting the intravenous antibiotic to increase the compliance, and improve the healing in at [facility]. Patient will be continuing his oral medication, he will follow-up in my office. Final diagnosis: New onset diabetes. Type II. Acute abscess involving the left plantar aspect. foreign body. Discharge Plan - Discharge Medications Prescriptions: DAPTOmycin [Cubicin] 500 mg IV ONCE 42 Days vial Saccharomyces Boulardi [Florastor] 250 mg PO BID #84 cap metFORMIN [glucOPHAGE] 850 mg PO BIDCC #60 tab GlipiZIDE [Glucotrol] 5 mg PO ACB #30 tab - Follow Up Plan Condition: STABLE Disposition: HOME/ ROUTINE Instructions: Carbohydrate Counting Diet, Probiotics, Hyperglycemia, Adult (DC) , Diabetes Type 2 (DC), Cellulitis (Skin Infection), Adult (DC), Daptomycin, Glipizide, Metformin, Foot Care for Diabetics, Wound Incision and Drainage (DC) Additional Instructions: - SEGUIMIENTO CON EL DR. OLSEN EN LA OFICINA EN EL PLAZO DE 7 ALEJO DESPUS DE LA DESCARGA --- LLAME AL OFICINA MAANA PARA HACER DE SANTIAGO VIJYA. - SEGUIMIENTO CON EL DR. HOLM (PODIATRA) EN LA OFICINA EL [facility], 13/07/17 --- LLAME A LA OFICINA MAANA PARA SOLICITAR UN HORARIO PARA DE SANTIAGO VIJAY. - CONTINUAR MEDICAMENTOS EN EL HOGAR EN CASA HETAL HABITUAL. -YA AG SIDO DISPUESTO A COMENZAR IV ANTIBITICOS EN EL CENTRO DE INFUSIN PARA PACIENTES [facility] ([facility]), 07/07. PUEDE ESTAR AQU AMARAL PRONTO HETAL LAS 7:00 AM. - EN EL PRIMER DA, ASEGRESE DE REGISTRARSE EN LA PLANTA BAJA. TODOS LOS ALEJO DESPUS DE QUE PUEDAS NOTIFICAR LA SEGURIDAD Y ELLOS TE ENVIAR AL CENTRO DE INFUSIN. -TENGA CUIDADO CON LA LNEA PICC EN DE SANTIAGO BRAZO DERECHO; MANTNGALO SECO Y LIMPIO; CUBRA CON PLSTICO PARA DUCHA. - NECESITAR EL IV ANTIBITICO (CUBICIN) MEKA VEZ AL DA ION 6 SEMANAS TOTALES (COMIENZ EL 06/07/17 Y LA LTIMA DOSIS SE ADJUDICA EL 07/17/17). CUANDO ACABES - NECESITAR LIMPIAR LA HERIDA EN DE SANTIAGO PIE CADA DA HASTA QUE JOSI EL DR. HOLM EN DE SANTIAGO OFICINA EL 13/07/17. COMIENCE ESTO EN [facility], 07/07/17; REPITA EL 09/07/17 Y EL 11/07/17. LIMPIARS TU PIE CON "BETADYNE", PERMITIR QUE SEA SECO, LUEGO CUBRIR CON MEKA ESTERIL "ALMOHADILLA 4X4 GAUZE". ENVUELVA ESTO CON MEKA "ENVOLTURA KERLIX GAUZE". -PASE Tenga cuidado con de santiago pie; CON LA DIABETES, L[place] PUEDEN SANAR MUY LENTAMENTE. -LOS NUEVOS MEDICAMENTOS PRESCRITOS SON PARA DE SANTIAGO AZCAR. ASEGRESE DE TOMARLOS EXACTAMENTE HETAL SE PRESCRIBE POR DR. MATT ROLLINS. -Meka NUEVA MEDICACIN AG SIDO PRESCRITO PARA PROTEGER DE SANTIAGO ESTMAGO MIENTRAS EST EN LOS ANTIBITICOS (FLORASTOR) - CHRIS DOS VECES AL DA. -Para otras RDENES O PREOCUPACIONES, CONTACTO DR. CARSON ROLLINS. -FOLLOW UP WITH DR. OLSEN IN THE OFFICE WITHIN 7 DAYS OF DISCHARGE---CALL THE OFFICE TOMORROW TO MAKE YOUR APPOINTMENT. -FOLLOW UP WITH DR. HOLM (HARDENING MACHINE OPERATOR HELPER) IN THE OFFICE ON 07/13/17---CALL THE OFFICE TOMORROW TO REQUEST A TIME FOR YOUR APPOINTMENT. -CONTINUE HOME MEDICATIONS AT HOME USUAL. -YOU HAVE BEEN ALREADY ARRANGED TO START IV ANTIBIOTICS AT THE [facility] TOMORROW (WEDNESDAY), . YOU CAN BE HERE EARLY 7:00 AM. -WHEN YOU COME ON YOUR FIRST DAY MAKE SURE YOU REGISTER ON THE GROUND FLOOR. EVERYDAY AFTER THAT YOU CAN NOTIFY SECURITY AND THEY WILL SEND YOU UP TO THE INFUSION CENTER. -BE CAREFUL WITH THE PICC LINE IN YOUR RIGHT ARM; KEEP IT DRY AND CLEAN; COVER WITH PLASTIC FOR SHOWERING. -YOU WILL NEED THE IV ANTIBIOTIC (CUBICIN) ONCE A DAY FOR 6 WEEKS TOTAL ( STARTED ON 07/06/17 AND LAST DOSE TO BE GIVEN ON 07/17/17). WHEN YOU ARE DONE -YOU WILL NEED TO CLEAN THE WOUND ON YOUR FOOT EVERY OTHER DAY UNTIL YOU SEE DR. HOLM IN HIS OFFICE ON 07/13/17. START THIS ON 07/07/17; REPEAT ON 07/09/17 AND 07/11/17. YOU WILL CLEAN YOUR FOOT WITH "BETADYNE", ALLOW TO DRY, THEN COVER WITH A STERILE "4X4 GAUZE PAD". WRAP THIS WITH A "KERLIX GAUZE WRAP." -PLEASE BE CAREFUL WITH YOUR FOOT; WITH DIABETES, WOUNDS CAN HEAL VERY SLOWLY. -TWO NEW MEDICATIONS PRESCRIBED ARE FOR YOUR SUGAR. MAKE SURE YOU TAKE THEM EXACTLY PRESCRIBED PER DR. OLSEN'S REQUEST. -ONE NEW MEDICATION HAS BEEN PRESCRIBED TO YOU TO PROTECT YOUR STOMACH WHILE ON THE ANTIBIOTICS (FLORASTOR)--TAKE TWICE A DAY. -FOR FURTHER ORDERS OR CONCERNS, CONTACT DR. OLSEN'S OFFICE. Referrals: Aki Garcia MD [Staff Provider] - Prince Olsen MD [Staff Provider] - Huy Holm DPM [Staff Provider] -
--- NOTE | 2017-07-07 09:47 | US ---
Date of procedure: 07/06/2017 Procedure: Ultrasound guidance for vascular access HISTORY: Infection requiring long-term IV antibiotics TECHNIQUE: Following informed consent and procedure time-out, the patient placed supine on the interventional table and the right arm prepped and draped in the usual sterile fashion. Ultrasound showed a patent and compressible basilic vein. After the skin was anesthetized with lidocaine, the basilic vein was accessed with micro micropuncture technique using ultrasound guidance. An image documenting ultrasound guidance for vascular access was permanently saved. IMPRESSION: Ultrasound guidance for vascular access for placement of PICC.
--- NOTE | 2017-07-07 09:50 | RAD ---
PROCEDURE: Date of procedure: 07/06/2017 Procedure: 1. Placement of a right arm PICC with ultrasound and fluoroscopic guidance, CPT 11795 2. PICC tip confirmation with spot radiograph and is in the superior vena cava Medications: 1 percent lidocaine Total Fluoro time: 6.5 Seconds Radiation: 2.76 MGy EBL: 2 cc HISTORY: Infection requiring long-term IV antibiotics TECHNIQUE: Following informed consent and procedure time-out, the patient was placed supine on the interventional table and the right arm prepped and draped in the usual sterile fashion. Ultrasound showed a patent and compressible right basilic vein. After the skin was anesthetized with lidocaine, the basilic vein was accessed with micro micropuncture technique using ultrasound guidance. A guidewire was then advanced under fluoroscopic guidance into the superior vena cava. An image documenting ultrasound guidance for vascular access was permanently saved. The length of the single-lumen 4 Irish PICC was trimmed to 35 centimeters and advanced through a peel-away sheath. The PICC was position with tip of PICC confirm a spot radiograph the superior vena cava. The PICC was secured to the patient's skin. The PICC was flushed. A biopatch and sterile dressing was applied. IMPRESSION: Placement of a single-lumen 4 Irish PICC trimmed to 35 centimeters via right basilic vein. The tip of the PICC is confirmed with spot radiograph and is in the superior vena cava.
== END 2017-07-06 18:10 | disposition home or self-care (01) | DRG 564 ==
LOC: C.ER 14:50 → C.9E 17:49 → C.6T 21:57
PROVIDERS: ADMIT Internal Medicine; ATTEND Internal Medicine
PROC: 0J9R0ZZ Drainage of Left Foot Subcutaneous Tissue and Fascia, Open Approach (ICD-10-PCS; principal; 2017-07-02 15:30)
PROC: 02HV33Z Insertion of Infusion Device into Superior Vena Cava, Percutaneous Approach (ICD-10-PCS; 2017-07-06)
DX: L03.116 Cellulitis of left lower limb (principal); M86.172 Other acute osteomyelitis, left ankle and foot; E11.69 Type 2 diabetes mellitus with other specified complication; E11.65 Type 2 diabetes mellitus with hyperglycemia; L02.612 Cutaneous abscess of left foot; B95.61 Methicillin susceptible Staphylococcus aureus infection as the cause of diseases classified elsewhere; S91.322A Laceration with foreign body, left foot, initial encounter; W45.0XXA Nail entering through skin, initial encounter; Z79.4 Long term (current) use of insulin